=== PATIENT | male | born 1950 | race Caucasian/White ===

== ENCOUNTER 2019-03-02 08:11 | Inpatient (IN) ==
[~2019-03-02 08:11] MED LIST: ceFAZolin 1,000 MG in SYRINGE 1 EACH IV ONE
[2019-03-02] MEDS: LACTATED RINGERS 1,000 ML IV SCH (09:30)
[2019-03-02 09:38] LABS: Basophils # 0.1 10*3/uL (0.0-0.2); Basophils % 0.9 % (0.0-0.8); Eosinophils # 0.5 10*3/uL (0.0-0.87); Eosinophils % 5.9 % (0.00-10.9); Hematocrit 39.3 VOL% (42.0-52.0); Hemoglobin 12.1 GM/DL (14.0-18.0); Immature Granulocytes Absolute 0.08 #; Lymphocytes # 1.3 10*3/uL (1.4-4.0); Lymphocytes % 16.5 % (21.2-54.2); Mean Corpuscular HGB Conc 30.8 GM/DL (32-36); Mean Corpuscular Hemoglobin 26 PG (27-34); Mean Corpuscular Volume 84.5 FL (87-102); Mean Platelet Volume 8.9 FL (9.6-12.0); Monocytes # 0.8 10*3/uL (0.11-0.8); Monocytes % 10.5 % (1.7-12.7); Neutrophils # 5.1 10*3/uL (1.4-7.4); Neutrophils % 65.2 % (38.7-73.9); Platelet Count 233 T/CUMM (130-400); Red Blood Count 4.65 MC/CUMM (3.8-5.5); Red Cell Distribution Width 15.7 % (9.3-17.3); White Blood Count 7.8 T/CUMM (4-12)
[2019-03-02] MEDS ORDERED: DIAZEPAM 5 MG TABLET PO ONE (10:05)
[2019-03-02] MEDS ORDERED: FAMOTIDINE 20 MG TABLET PO ONE (10:05)
[2019-03-02 10:06] LABS: Calcium 9.3 MG/DL (8.5-10.1); Osmolality,Calculated 290.4 MOS/KG (273-304)
[2019-03-02] MEDS ORDERED: CARVEDILOL 3.125 MG TABLET PO ONE (10:06)
[2019-03-02 10:09] LABS: Potassium 6.1 MMOL/L (3.5-5.1)
[2019-03-02] MEDS ORDERED: CARVEDILOL 3.125 MG TABLET ONE (10:26)
[2019-03-02] MEDS ORDERED: ceFAZolin 1,000 MG VIAL ONE (10:26)
[2019-03-02] MEDS ORDERED: FAMOTIDINE 20 MG TABLET ONE (10:26)
[2019-03-02] MEDS ORDERED: DIAZEPAM 5 MG TABLET ONE (10:26)
[2019-03-02] MEDS ORDERED: ALBUTEROL/IPRATROPIUM 3 ML NEB RESP TX PRN (11:02)
[2019-03-02] MEDS ORDERED: DEXTROSE 50% 25 GM/50 ML VIAL IV PRN (11:02)
[2019-03-02] MEDS ORDERED: ONDANSETRON 4 MG/2 ML VIAL IV PRN (11:02)
[2019-03-02] MEDS ORDERED: GLUCAGON 1 MG VIAL IM PRN (11:02)
[2019-03-02] MEDS ORDERED: BISACODYL 5 MG TABLET PO PRN (11:02)
[2019-03-02] MEDS ORDERED: ACETAMINOPHEN 325 MG TABLET PO PRN (11:02)
[2019-03-02] MEDS ORDERED: ceFAZolin 1,000 MG in SYRINGE 1 EACH IV ONE (11:05)
[2019-03-02] MEDS ORDERED: NITROGLYCERIN SL 0.4 MG TABLET SL PRN (11:06)
[2019-03-02] MEDS: INSULIN LISPRO 100 UNIT/ML SUBCUT SCH ×2 (12:00→17:45)
[2019-03-02] MEDS ORDERED: SODIUM POLYSTYRENE SULFATE 15 GM/60 ML BOTTLE PO ONE (14:00)
[2019-03-02] MEDS: CLINDAMYCIN 300 MG CAPSULE PO SCH ×3 (15:15→23:24)
[2019-03-02] MEDS: SODIUM BICARB INJ 50 MEQ in SODIUM CHLORIDE 0.45% 1,000 ML IV SCH (15:18)
[2019-03-02] MEDS ORDERED: SODIUM POLYSTYRENE SULFATE 15 GM/60 ML BOTTLE PO PRN (19:30)
[2019-03-02] MEDS: CARVEDILOL 3.125 MG TABLET PO SCH (21:29)
[2019-03-02] MEDS: SIMVASTATIN 10 MG TABLET PO SCH (21:29)
[2019-03-02] MEDS: LORATADINE 10 MG TABLET PO SCH (21:29)
[2019-03-03] MEDS: SODIUM BICARB INJ 50 MEQ in SODIUM CHLORIDE 0.45% 1,000 ML IV SCH ×2 (04:14→21:40)
[2019-03-03 04:28] LABS: Basophils # 0.1 10*3/uL (0.0-0.2); Eosinophils # 0.4 10*3/uL (0.0-0.87); Eosinophils % 6.2 % (0.00-10.9); Hematocrit 36.2 VOL% (42.0-52.0); Immature Granulocytes % 0.9 %; Immature Granulocytes Absolute 0.06 #; Lymphocytes # 1.3 10*3/uL (1.4-4.0); Lymphocytes % 19.2 % (21.2-54.2); Mean Corpuscular HGB Conc 30.4 GM/DL (32-36); Mean Corpuscular Hemoglobin 26 PG (27-34); Mean Corpuscular Volume 84.2 FL (87-102); Mean Platelet Volume 8.7 FL (9.6-12.0); Monocytes % 13.8 % (1.7-12.7); Neutrophils # 4.1 10*3/uL (1.4-7.4); Neutrophils % 58.9 % (38.7-73.9); Platelet Count 207 T/CUMM (130-400); Red Cell Distribution Width 15.5 % (9.3-17.3)
[2019-03-03 05:05] LABS: Calcium 8.5 MG/DL (8.5-10.1); Osmolality,Calculated 283.7 MOS/KG (273-304); Potassium 5.2 MMOL/L (3.5-5.1)
[2019-03-03] MEDS ORDERED: DIAZEPAM 5 MG TABLET PO ONE (06:00)
[2019-03-03] MEDS ORDERED: FAMOTIDINE 20 MG TABLET PO ONE (06:00)
[2019-03-03] MEDS ORDERED: ceFAZolin 1,000 MG in SYRINGE 1 EACH IV ONE (06:00)
[2019-03-03] MEDS ORDERED: CARVEDILOL 3.125 MG TABLET PO ONE (06:00)
[2019-03-03] MEDS: CLINDAMYCIN 300 MG CAPSULE PO SCH ×3 (08:33→17:29)
[2019-03-03] MEDS ORDERED: LIDOCAINE 1%/EPI INJ 20 ML VIAL ONE (10:09)
[2019-03-03] MEDS: INSULIN LISPRO 100 UNIT/ML SUBCUT SCH ×3 (10:51→17:26)
[2019-03-03] MEDS: LACTATED RINGERS 1,000 ML IV SCH (10:52)
[2019-03-03] MEDS ORDERED: PROPOFOL 200 MG/20 ML VIAL IV ONE (10:52)
[2019-03-03] MEDS ORDERED: SEVOFLURANE 1 UNIT/15 MINUTE INH ONE (10:53)
[2019-03-03] MEDS ORDERED: MIDAZOLAM 2 MG/2 ML VIAL ONE (10:53)
[2019-03-03] MEDS ORDERED: ONDANSETRON 4 MG/2 ML VIAL ONE (10:54)
[2019-03-03] MEDS ORDERED: fentaNYL 100 MCG/2 ML VIAL ONE (10:54)
[2019-03-03] MEDS ORDERED: PHENYLEPHRINE 1 MG/10 ML SYRINGE IV ONE (10:54)
[2019-03-03] MEDS ORDERED: SODIUM CHLORIDE 0.9% 250 ML IV ONE (10:55)
[2019-03-03] MEDS: CARVEDILOL 3.125 MG TABLET PO SCH ×2 (11:28→21:14)
[2019-03-03] MEDS: LORATADINE 10 MG TABLET PO SCH ×2 (11:29→21:14)
[2019-03-03] MEDS: sitaGLIPtin 100 MG TABLET PO SCH (11:29)
[2019-03-03] MEDS: ALLOPURINOL 300 MG TABLET PO SCH (11:30)
[2019-03-03] MEDS: PANTOPRAZOLE 40 MG TABLET PO SCH (11:30)
[2019-03-03] MEDS: MAGNESIUM GLUCONATE 500 MG TABLET PO SCH (11:30)
[2019-03-03] MEDS: ASPIRIN CHEW 81 MG TABLET PO SCH (11:30)
[2019-03-03] MEDS: NON-FORMULARY MEDICATION (Canagliflozin [Invokana] 300 MG) PO SCH (11:46)
[2019-03-03] MEDS ORDERED: HYDROmorphone 2 MG/1 ML VIAL IV PRN ×2 (11:48)
[2019-03-03] MEDS ORDERED: NALOXONE 0.4 MG/ML VIAL ONE (15:59)
[2019-03-03] MEDS: SIMVASTATIN 10 MG TABLET PO SCH (21:14)
[2019-03-04] MEDS: CLINDAMYCIN 300 MG CAPSULE PO SCH ×3 (01:38→12:02)
[2019-03-04] MEDS: INSULIN LISPRO 100 UNIT/ML SUBCUT SCH ×3 (09:09→17:20)
[2019-03-04] MEDS: MAGNESIUM GLUCONATE 500 MG TABLET PO SCH (09:26)
[2019-03-04] MEDS: sitaGLIPtin 100 MG TABLET PO SCH (09:26)
[2019-03-04] MEDS: LORATADINE 10 MG TABLET PO SCH ×2 (09:26→21:04)
[2019-03-04] MEDS: PANTOPRAZOLE 40 MG TABLET PO SCH (09:26)
[2019-03-04] MEDS: CARVEDILOL 3.125 MG TABLET PO SCH ×2 (09:26→21:04)
[2019-03-04] MEDS: ALLOPURINOL 300 MG TABLET PO SCH (09:26)
[2019-03-04] MEDS: ASPIRIN CHEW 81 MG TABLET PO SCH (09:26)
[2019-03-04] MEDS: LACTATED RINGERS 1,000 ML IV SCH (09:27)
[2019-03-04] MEDS: NON-FORMULARY MEDICATION (Canagliflozin [Invokana] 300 MG) PO SCH (09:27)
[2019-03-04] MEDS: SODIUM BICARB INJ 50 MEQ in SODIUM CHLORIDE 0.45% 1,000 ML IV SCH ×2 (12:03→19:25)
[2019-03-04] MEDS: SODIUM HYPOCHLORITE 0.25% IRRIG 473 ML BOTTLE TOP SCH (15:10)
[2019-03-04] MEDS: MORPHINE 4 MG/1 ML VIAL IV PRN (15:13)
[2019-03-04] MEDS: PIPERACILLIN/TAZOBACTAM 3,375 MG in SODIUM CHLORIDE 0.9% 100 ML IV SCH (17:17)
[2019-03-04] MEDS: CHLORHEXIDINE 4% SOLN 118 ML BOTTLE TOP SCH (17:21)
[2019-03-04] MEDS: SIMVASTATIN 10 MG TABLET PO SCH (21:04)
[2019-03-05] MEDS: PIPERACILLIN/TAZOBACTAM 3,375 MG in SODIUM CHLORIDE 0.9% 100 ML IV SCH ×2 (00:55→08:07)
[2019-03-05 05:09] LABS: Calcium 8.3 MG/DL (8.5-10.1); Osmolality,Calculated 279.8 MOS/KG (273-304); Potassium 4.4 MMOL/L (3.5-5.1)
[2019-03-05 06:57] LABS: Basophils # 0.1 10*3/uL (0.0-0.2); Eosinophils # 0.5 10*3/uL (0.0-0.87); Eosinophils % 7.5 % (0.00-10.9); Hematocrit 35.2 VOL% (42.0-52.0); Hemoglobin 10.8 GM/DL (14.0-18.0); Immature Granulocytes % 1.3 %; Immature Granulocytes Absolute 0.08 #; Lymphocytes # 1.1 10*3/uL (1.4-4.0); Lymphocytes % 18.6 % (21.2-54.2); Mean Corpuscular HGB Conc 30.7 GM/DL (32-36); Mean Corpuscular Hemoglobin 26 PG (27-34); Mean Corpuscular Volume 83.2 FL (87-102); Mean Platelet Volume 8.8 FL (9.6-12.0); Monocytes # 0.8 10*3/uL (0.11-0.8); Monocytes % 14.1 % (1.7-12.7); Neutrophils # 3.4 10*3/uL (1.4-7.4); Neutrophils % 57.5 % (38.7-73.9); Platelet Count 195 T/CUMM (130-400); Red Blood Count 4.23 MC/CUMM (3.8-5.5); Red Cell Distribution Width 15.2 % (9.3-17.3)
[2019-03-05] MEDS: INSULIN LISPRO 100 UNIT/ML SUBCUT SCH ×3 (08:07→17:40)
[2019-03-05] MEDS: sitaGLIPtin 100 MG TABLET PO SCH (08:08)
[2019-03-05] MEDS: ASPIRIN CHEW 81 MG TABLET PO SCH (08:08)
[2019-03-05] MEDS: LORATADINE 10 MG TABLET PO SCH ×2 (08:08→20:18)
[2019-03-05] MEDS: CARVEDILOL 3.125 MG TABLET PO SCH ×2 (08:09→20:18)
[2019-03-05] MEDS: MAGNESIUM GLUCONATE 500 MG TABLET PO SCH (08:09)
[2019-03-05] MEDS: PANTOPRAZOLE 40 MG TABLET PO SCH (08:09)
[2019-03-05] MEDS: ALLOPURINOL 300 MG TABLET PO SCH (08:09)
[2019-03-05] MEDS: SODIUM HYPOCHLORITE 0.25% IRRIG 473 ML BOTTLE TOP SCH (08:10)
[2019-03-05] MEDS: NON-FORMULARY MEDICATION (Canagliflozin [Invokana] 300 MG) PO SCH (08:10)
[2019-03-05] MEDS: CHLORHEXIDINE 4% SOLN 118 ML BOTTLE TOP SCH (10:21)
[2019-03-05] MEDS: LACTATED RINGERS 1,000 ML IV SCH (10:21)
[2019-03-05] MEDS: VANCOMYCIN INJ 1,000 MG in SODIUM CHLORIDE 0.9% 250 ML IV SCH (13:55)
[2019-03-05] MEDS: SODIUM BICARB INJ 50 MEQ in SODIUM CHLORIDE 0.45% 1,000 ML IV SCH (13:56)
[2019-03-05] MEDS: SIMVASTATIN 10 MG TABLET PO SCH (20:18)
[2019-03-06] MEDS: VANCOMYCIN INJ 1,000 MG in SODIUM CHLORIDE 0.9% 250 ML IV SCH ×2 (00:20→12:56)
[2019-03-06] MEDS: SODIUM BICARB INJ 50 MEQ in SODIUM CHLORIDE 0.45% 1,000 ML IV SCH (06:42)
[2019-03-06 08:38] LABS: Calcium 8.4 MG/DL (8.5-10.1); Osmolality,Calculated 278.1 MOS/KG (273-304); Potassium 4.2 MMOL/L (3.5-5.1)
[2019-03-06] MEDS: LORATADINE 10 MG TABLET PO SCH ×2 (08:41→21:14)
[2019-03-06] MEDS: CARVEDILOL 3.125 MG TABLET PO SCH ×2 (08:41→21:14)
[2019-03-06] MEDS: MAGNESIUM GLUCONATE 500 MG TABLET PO SCH (08:42)
[2019-03-06] MEDS: ASPIRIN CHEW 81 MG TABLET PO SCH (08:42)
[2019-03-06] MEDS: sitaGLIPtin 100 MG TABLET PO SCH (08:42)
[2019-03-06] MEDS: PANTOPRAZOLE 40 MG TABLET PO SCH (08:42)
[2019-03-06] MEDS: ALLOPURINOL 300 MG TABLET PO SCH (08:43)
[2019-03-06] MEDS: NON-FORMULARY MEDICATION (Canagliflozin [Invokana] 300 MG) PO SCH (08:45)
[2019-03-06] MEDS: INSULIN LISPRO 100 UNIT/ML SUBCUT SCH ×3 (09:00→16:05)
[2019-03-06] MEDS: SODIUM HYPOCHLORITE 0.25% IRRIG 473 ML BOTTLE TOP SCH (10:47)
[2019-03-06] MEDS: CHLORHEXIDINE 4% SOLN 118 ML BOTTLE TOP SCH (10:47)
[2019-03-06] MEDS: SIMVASTATIN 10 MG TABLET PO SCH (21:15)
[2019-03-07] MEDS: SODIUM BICARB INJ 50 MEQ in SODIUM CHLORIDE 0.45% 1,000 ML IV SCH ×2 (00:22→20:18)
[2019-03-07] MEDS: VANCOMYCIN INJ 1,000 MG in SODIUM CHLORIDE 0.9% 250 ML IV SCH ×2 (02:16→13:47)
[2019-03-07] MEDS ORDERED: BUPIVACAINE 0.5% 50 ML VIAL ONE (06:07)
[2019-03-07] MEDS ORDERED: LIDOCAINE 1% 20 ML VIAL ONE (06:07)
[2019-03-07] MEDS: INSULIN LISPRO 100 UNIT/ML SUBCUT SCH ×3 (07:15→17:04)
[2019-03-07] MEDS ORDERED: fentaNYL 100 MCG/2 ML VIAL ONE (08:18)
[2019-03-07] MEDS ORDERED: DEXAMETHASONE 4 MG/1 ML VIAL ONE (08:18)
[2019-03-07] MEDS ORDERED: ONDANSETRON 4 MG/2 ML VIAL ONE ×2 (08:18→08:29)
[2019-03-07] MEDS ORDERED: KETOROLAC 30 MG/1 ML VIAL ONE (08:18)
[2019-03-07] MEDS ORDERED: PROPOFOL 200 MG/20 ML VIAL IV ONE (08:18)
[2019-03-07] MEDS ORDERED: PHENYLEPHRINE 1 MG/10 ML SYRINGE IV ONE (08:18)
[2019-03-07] MEDS ORDERED: SEVOFLURANE 1 UNIT/15 MINUTE INH ONE (08:19)
[2019-03-07] MEDS ORDERED: MEPERIDINE 25 MG/1 ML VIAL ONE (08:29)
[2019-03-07] MEDS ORDERED: ONDANSETRON 4 MG/2 ML VIAL IV PRN (08:30)
[2019-03-07] MEDS ORDERED: MEPERIDINE 25 MG/1 ML VIAL IV PRN (08:30)
[2019-03-07] MEDS ORDERED: PROMETHAZINE INJ 25 MG in SODIUM CHLORIDE 0.9% 50 ML IV PRN (08:30)
[2019-03-07] MEDS ORDERED: HYDROmorphone 2 MG/1 ML VIAL IV PRN (08:30)
[2019-03-07] MEDS: NON-FORMULARY MEDICATION (Canagliflozin [Invokana] 300 MG) PO SCH (09:49)
[2019-03-07] MEDS: LACTATED RINGERS 1,000 ML IV SCH (09:49)
[2019-03-07] MEDS: PANTOPRAZOLE 40 MG TABLET PO SCH (09:53)
[2019-03-07] MEDS: ALLOPURINOL 300 MG TABLET PO SCH (09:53)
[2019-03-07] MEDS: MAGNESIUM GLUCONATE 500 MG TABLET PO SCH (09:53)
[2019-03-07] MEDS: SODIUM HYPOCHLORITE 0.25% IRRIG 473 ML BOTTLE TOP SCH (09:54)
[2019-03-07] MEDS: ASPIRIN CHEW 81 MG TABLET PO SCH (09:54)
[2019-03-07] MEDS: CARVEDILOL 3.125 MG TABLET PO SCH ×2 (09:54→20:19)
[2019-03-07] MEDS: CHLORHEXIDINE 4% SOLN 118 ML BOTTLE TOP SCH (09:54)
[2019-03-07] MEDS: LORATADINE 10 MG TABLET PO SCH ×2 (09:54→20:19)
[2019-03-07] MEDS: sitaGLIPtin 100 MG TABLET PO SCH (09:54)
[2019-03-07] MEDS ORDERED: VANCOMYCIN INJ 1,000 MG in SODIUM CHLORIDE 0.9% 250 ML IV SCH (20:00)
[2019-03-07] MEDS: SIMVASTATIN 10 MG TABLET PO SCH (20:19)
[2019-03-08] MEDS: INSULIN LISPRO 100 UNIT/ML SUBCUT SCH ×3 (09:43→17:29)
[2019-03-08] MEDS: ASPIRIN CHEW 81 MG TABLET PO SCH (09:44)
[2019-03-08] MEDS: CARVEDILOL 3.125 MG TABLET PO SCH ×2 (09:44→21:39)
[2019-03-08] MEDS: MAGNESIUM GLUCONATE 500 MG TABLET PO SCH (09:44)
[2019-03-08] MEDS: sitaGLIPtin 100 MG TABLET PO SCH (09:44)
[2019-03-08] MEDS: ALLOPURINOL 300 MG TABLET PO SCH (09:45)
[2019-03-08] MEDS: PANTOPRAZOLE 40 MG TABLET PO SCH (09:45)
[2019-03-08] MEDS: NON-FORMULARY MEDICATION (Canagliflozin [Invokana] 300 MG) PO SCH (09:45)
[2019-03-08] MEDS: LORATADINE 10 MG TABLET PO SCH ×2 (09:45→21:39)
[2019-03-08] MEDS ORDERED: TUBERCULIN SKIN TEST 0.1 ML SYRINGE INTRADERM ONE (10:00)
[2019-03-08] MEDS: CHLORHEXIDINE 4% SOLN 118 ML BOTTLE TOP SCH (10:00)
[2019-03-08] MEDS: SODIUM HYPOCHLORITE 0.25% IRRIG 473 ML BOTTLE TOP SCH (10:00)
[2019-03-08] MEDS: LEVOFLOXACIN 500 MG TABLET PO SCH (12:39)
[2019-03-08] MEDS: SODIUM BICARB INJ 50 MEQ in SODIUM CHLORIDE 0.45% 1,000 ML IV SCH (16:32)
[2019-03-08] MEDS: SIMVASTATIN 10 MG TABLET PO SCH (21:39)
[2019-03-09] MEDS: INSULIN LISPRO 100 UNIT/ML SUBCUT SCH ×3 (08:01→18:00)
[2019-03-09] MEDS: CARVEDILOL 3.125 MG TABLET PO SCH ×2 (08:02→20:14)
[2019-03-09] MEDS: MAGNESIUM GLUCONATE 500 MG TABLET PO SCH (08:02)
[2019-03-09] MEDS: LORATADINE 10 MG TABLET PO SCH ×2 (08:02→20:14)
[2019-03-09] MEDS: ALLOPURINOL 300 MG TABLET PO SCH (08:02)
[2019-03-09] MEDS: LEVOFLOXACIN 500 MG TABLET PO SCH (08:03)
[2019-03-09] MEDS: ASPIRIN CHEW 81 MG TABLET PO SCH (08:03)
[2019-03-09] MEDS: PANTOPRAZOLE 40 MG TABLET PO SCH (08:03)
[2019-03-09] MEDS: sitaGLIPtin 100 MG TABLET PO SCH (08:03)
[2019-03-09] MEDS: CHLORHEXIDINE 4% SOLN 118 ML BOTTLE TOP SCH (08:04)
[2019-03-09] MEDS: SODIUM HYPOCHLORITE 0.25% IRRIG 473 ML BOTTLE TOP SCH (08:04)
[2019-03-09] MEDS: NON-FORMULARY MEDICATION (Canagliflozin [Invokana] 300 MG) PO SCH (08:04)
[2019-03-09] MEDS: SODIUM BICARB INJ 50 MEQ in SODIUM CHLORIDE 0.45% 1,000 ML IV SCH (18:36)
[2019-03-09] MEDS: SIMVASTATIN 10 MG TABLET PO SCH (20:14)
[2019-03-10] MEDS: SODIUM BICARB INJ 50 MEQ in SODIUM CHLORIDE 0.45% 1,000 ML IV SCH (00:47)
[2019-03-10] MEDS: LEVOFLOXACIN 500 MG TABLET PO SCH (08:47)
[2019-03-10] MEDS: LORATADINE 10 MG TABLET PO SCH (08:48)
[2019-03-10] MEDS: ASPIRIN CHEW 81 MG TABLET PO SCH (08:48)
[2019-03-10] MEDS: sitaGLIPtin 100 MG TABLET PO SCH (08:48)
[2019-03-10] MEDS: PANTOPRAZOLE 40 MG TABLET PO SCH (08:48)
[2019-03-10] MEDS: MAGNESIUM GLUCONATE 500 MG TABLET PO SCH (08:48)
[2019-03-10] MEDS: ALLOPURINOL 300 MG TABLET PO SCH (08:48)
[2019-03-10] MEDS: CARVEDILOL 3.125 MG TABLET PO SCH (08:48)
[2019-03-10] MEDS: INSULIN LISPRO 100 UNIT/ML SUBCUT SCH ×2 (08:49→13:08)
[2019-03-10] MEDS: CHLORHEXIDINE 4% SOLN 118 ML BOTTLE TOP SCH (09:30)
[2019-03-10] MEDS: SODIUM HYPOCHLORITE 0.25% IRRIG 473 ML BOTTLE TOP SCH (09:30)
[2019-03-10] MEDS: NON-FORMULARY MEDICATION (Canagliflozin [Invokana] 300 MG) PO SCH (09:50)
[2019-03-10] MEDS: MORPHINE 4 MG/1 ML VIAL IV PRN (10:29)
[2019-03-10 11:27] VITALS: BP 120/72
== END 2019-03-10 15:05 | disposition home health service (06) | DRG 492 ==
LOC: N.OR 08:11 → N.SDSINP 08:35 → N.3E 11:02
PROVIDERS: ADMIT Surgery; ATTEND Surgery

== ENCOUNTER 2019-03-30 11:03 | Inpatient (IN) ==
[~2019-03-30 11:03] MED LIST changes: +ceFAZolin 1,000 MG VIAL ONE
[2019-03-30 12:16] LABS: Calcium 9.1 MG/DL (8.5-10.1)
[2019-03-30] MEDS ORDERED: LIDOCAINE 1%/EPI INJ 20 ML VIAL ONE (13:08)
[2019-03-30] MEDS ORDERED: MIDAZOLAM 2 MG/2 ML VIAL ONE (14:22)
[2019-03-30] MEDS ORDERED: PROPOFOL 200 MG/20 ML VIAL IV ONE (14:22)
[2019-03-30] MEDS ORDERED: PHENYLEPHRINE 1 MG/10 ML SYRINGE IV ONE (14:23)
[2019-03-30] MEDS ORDERED: fentaNYL 100 MCG/2 ML VIAL ONE (14:23)
[2019-03-30] MEDS ORDERED: ONDANSETRON 4 MG/2 ML VIAL ONE (14:23)
[2019-03-30] MEDS ORDERED: ACETAMINOPHEN 1,000 MG/100 ML VIAL IV ONE (14:23)
[2019-03-30] MEDS ORDERED: DEXAMETHASONE 4 MG/1 ML VIAL ONE (14:23)
[2019-03-30] MEDS ORDERED: HYDROmorphone 2 MG/1 ML VIAL IV PRN ×2 (15:08→16:19)
[2019-03-30] MEDS ORDERED: ONDANSETRON 4 MG/2 ML VIAL IV PRN ×2 (15:08→16:19)
[2019-03-30] MEDS ORDERED: DEXTROSE 50% 25 GM/50 ML SYRINGE IV PRN (16:19)
[2019-03-30] MEDS ORDERED: GLUCAGON 1 MG VIAL IM PRN (16:19)
[2019-03-30] MEDS ORDERED: PROMETHAZINE 25 MG/1 ML VIAL IM PRN (16:19)
[2019-03-30] MEDS: LACTATED RINGERS 1,000 ML IV SCH ×2 (16:19→18:16)
[2019-03-30] MEDS ORDERED: NITROGLYCERIN SL 0.4 MG TABLET SL PRN (16:19)
[2019-03-30 17:17] LABS: Calcium 8.4 MG/DL (8.5-10.1); Osmolality,Calculated 276.4 MOS/KG (273-304)
[2019-03-30 18:06] LABS: Basophils # 0.1 10*3/uL (0.0-0.2); Basophils % 0.5 % (0.0-0.8); Eosinophils # 0.3 10*3/uL (0.0-0.87); Eosinophils % 3.2 % (0.00-10.9); Hematocrit 37.4 VOL% (42.0-52.0); Hemoglobin 11.6 GM/DL (14.0-18.0); Immature Granulocytes % 0.5 %; Immature Granulocytes Absolute 0.05 #; Lymphocytes # 0.9 10*3/uL (1.4-4.0); Lymphocytes % 9.6 % (21.2-54.2); Mean Corpuscular Volume 82.7 FL (87-102); Mean Platelet Volume 9.4 FL (9.6-12.0); Monocytes % 2.3 % (1.7-12.7); Neutrophils % 83.9 % (38.7-73.9); Platelet Count 155 T/CUMM (130-400); Red Blood Count 4.52 MC/CUMM (3.8-5.5); Red Cell Distribution Width 15.2 % (9.3-17.3); White Blood Count 9.2 T/CUMM (4-12)
[2019-03-30] MEDS: GABAPENTIN 100 MG CAPSULE PO SCH ×2 (18:10→21:18)
[2019-03-30] MEDS: INSULIN REGULAR 100 UNIT/ML SUBCUT SCH ×2 (18:11→21:55)
[2019-03-30] MEDS ORDERED: SODIUM POLYSTYRENE SULFATE 15 GM/60 ML BOTTLE PO ONE (18:41)
[2019-03-30] MEDS ORDERED: CALCIUM GLUCONATE 2,000 MG in SODIUM CHLORIDE 0.9% 100 ML IV ONE (18:41)
[2019-03-30] MEDS ORDERED: INSULIN REGULAR 100 UNIT/ML IV ONE (18:41)
[2019-03-30] MEDS ORDERED: DEXTROSE 50% 25 GM/50 ML SYRINGE IV ONE (18:41)
[2019-03-30] MEDS: SIMVASTATIN 10 MG TABLET PO SCH (21:17)
[2019-03-30] MEDS: CARVEDILOL 3.125 MG TABLET PO SCH (21:17)
[2019-03-30] MEDS: FAMOTIDINE 20 MG TABLET PO SCH (21:17)
[2019-03-30] MEDS: MAGNESIUM GLUCONATE 500 MG TABLET PO SCH (21:17)
[2019-03-30] MEDS: LORATADINE 10 MG TABLET PO SCH (21:18)
[2019-03-30] MEDS: ASPIRIN CHEW 81 MG TABLET PO SCH (21:18)
[2019-03-30] MEDS: SODIUM BICARB INJ 50 MEQ in DEXTROSE 5% 1,000 ML IV SCH (21:18)
[2019-03-30] MEDS ORDERED: SODIUM POLYSTYRENE SULFATE 15 GM/60 ML BOTTLE PO STA (22:07)
[2019-03-30] MEDS ORDERED: INSULIN REGULAR 100 UNIT/ML SUBCUT ONE (22:08)
[2019-03-31 02:33] LABS: Calcium 8.5 MG/DL (8.5-10.1); Osmolality,Calculated 283.5 MOS/KG (273-304)
[2019-03-31 05:02] LABS: Basophils % 0.2 % (0.0-0.8); Hematocrit 38.8 VOL% (42.0-52.0); Hemoglobin 12.1 GM/DL (14.0-18.0); Immature Granulocytes % 0.5 %; Immature Granulocytes Absolute 0.05 #; Lymphocytes % 10.8 % (21.2-54.2); Mean Corpuscular HGB Conc 31.2 GM/DL (32-36); Mean Corpuscular Volume 81.5 FL (87-102); Mean Platelet Volume 9.4 FL (9.6-12.0); Monocytes % 7.5 % (1.7-12.7); Platelet Count 170 T/CUMM (130-400); Red Blood Count 4.76 MC/CUMM (3.8-5.5); Red Cell Distribution Width 14.9 % (9.3-17.3); White Blood Count 9.3 T/CUMM (4-12)
[2019-03-31 05:29] LABS: Calcium 9.2 MG/DL (8.5-10.1); Osmolality,Calculated 283.2 MOS/KG (273-304)
[2019-03-31] MEDS: SODIUM BICARB INJ 50 MEQ in DEXTROSE 5% 1,000 ML IV SCH (06:37)
[2019-03-31 07:36] LABS: Apearance,Urine CLEAR (Clear); Bilirubin,Urine Negative (Negative); Blood, Urine Negative (Negative); Glucose,Urine (UA) >=500 mg/dL (Negative); Ketones,Urine Negative (Negative); Nitrite,Urine Negative (Negative); Protein,Urine Negative; Squamous Epithelial Cell,Urine Occasional /HPF (0-10); Urine Color Straw (Yellow); Urine Urobilinogen < 2.0 EU/DL (0.2-1.0)
[2019-03-31] MEDS: ENOXAPARIN 40 MG/0.4 ML SYRINGE SUBCUT SCH (08:58)
[2019-03-31] MEDS: INSULIN REGULAR 100 UNIT/ML SUBCUT SCH ×4 (08:58→22:02)
[2019-03-31] MEDS: LORATADINE 10 MG TABLET PO SCH ×2 (08:58→21:59)
[2019-03-31] MEDS: GABAPENTIN 100 MG CAPSULE PO SCH ×3 (08:59→21:58)
[2019-03-31] MEDS: FAMOTIDINE 20 MG TABLET PO SCH ×2 (08:59→21:59)
[2019-03-31] MEDS: CARVEDILOL 3.125 MG TABLET PO SCH ×2 (08:59→21:59)
[2019-03-31] MEDS ORDERED: ALLOPURINOL 300 MG TABLET PO SCH (09:00)
[2019-03-31 09:38] LABS: Calcium 8.9 MG/DL (8.5-10.1); Osmolality,Calculated 283.2 MOS/KG (273-304)
[2019-03-31] MEDS ORDERED: SODIUM CHLORIDE 0.9% 500 ML IV ONE ×2 (10:44→10:50)
[2019-03-31] MEDS ORDERED: SODIUM CHLORIDE 0.9% 1,000 ML IV SCH (11:00)
[2019-03-31] MEDS: ALLOPURINOL 100 MG TABLET PO SCH (12:00)
[2019-03-31 12:19] LABS: Calcium 8.6 MG/DL (8.5-10.1); Osmolality,Calculated 282.2 MOS/KG (273-304)
[2019-03-31] MEDS: SODIUM POLYSTYRENE SULFATE 15 GM/60 ML BOTTLE PO SCH ×2 (13:00→22:00)
[2019-03-31] MEDS: SODIUM BICARB INJ 50 MEQ in DEXTROSE 5% NACL 0.45% 1,000 ML IV SCH (18:13)
[2019-03-31] MEDS: ASPIRIN CHEW 81 MG TABLET PO SCH (21:59)
[2019-03-31] MEDS: SIMVASTATIN 10 MG TABLET PO SCH (21:59)
[2019-03-31] MEDS: MAGNESIUM GLUCONATE 500 MG TABLET PO SCH (22:00)
[2019-04-01] MEDS: SODIUM BICARB INJ 50 MEQ in DEXTROSE 5% NACL 0.45% 1,000 ML IV SCH (03:44)
[2019-04-01] MEDS: SODIUM POLYSTYRENE SULFATE 15 GM/60 ML BOTTLE PO SCH ×2 (04:06→12:38)
[2019-04-01] MEDS: INSULIN REGULAR 100 UNIT/ML SUBCUT SCH ×2 (07:35→11:31)
[2019-04-01] MEDS: ALLOPURINOL 100 MG TABLET PO SCH (08:00)
[2019-04-01] MEDS: ENOXAPARIN 40 MG/0.4 ML SYRINGE SUBCUT SCH (08:00)
[2019-04-01] MEDS: GABAPENTIN 100 MG CAPSULE PO SCH (08:00)
[2019-04-01] MEDS: LORATADINE 10 MG TABLET PO SCH (08:00)
[2019-04-01] MEDS: FAMOTIDINE 20 MG TABLET PO SCH (08:00)
[2019-04-01] MEDS: CARVEDILOL 3.125 MG TABLET PO SCH (08:00)
[2019-04-01] MEDS ORDERED: INSULIN GLARGINE 100 UNIT/ML SUBCUT SCH (09:00)
[2019-04-01 11:57] VITALS: BP 147/64
== END 2019-04-01 17:30 | disposition home or self-care (01) | DRG 476 ==
LOC: N.OR 11:03 → N.3E 16:08
PROVIDERS: ADMIT Surgery; ATTEND Surgery

== ENCOUNTER 2021-12-03 10:41 | Inpatient (IN) ==
[~2021-12-03 10:41] MED LIST changes: +ASPIRIN 325 MG TABLET PO ONE; +DIAZEPAM 5 MG TABLET PO ONE; +MAGNESIUM SULF RIDER 2 GM/50 ML PREMIX IV PRN; +POTASSIUM CHLORIDE RIDER 10 MEQ/100 ML PREMIX IV PRN; -ceFAZolin 1,000 MG VIAL ONE; -ceFAZolin 1,000 MG in SYRINGE 1 EACH IV ONE; +diphenhydrAMINE CAP 50 MG CAPSULE PO ONE
[2021-12-03] MEDS ORDERED: diphenhydrAMINE CAP 50 MG CAPSULE ONE (11:43)
[2021-12-03] MEDS ORDERED: DIAZEPAM 5 MG TABLET ONE (11:43)
[2021-12-03] MEDS ORDERED: ASPIRIN 325 MG TABLET ONE (11:43)
[2021-12-03] MEDS: SODIUM CHLORIDE 0.9% 1,000 ML IV SCH (11:45)
[2021-12-03] MEDS ORDERED: LIDOCAINE 1% 20 ML VIAL ONE (13:02)
[2021-12-03] MEDS ORDERED: fentaNYL 100 MCG/2 ML VIAL ONE (13:03)
[2021-12-03] MEDS ORDERED: MIDAZOLAM 2 MG/2 ML VIAL ONE (13:03)
[2021-12-03] MEDS ORDERED: ENOXAPARIN 30 MG/0.3 ML SYRINGE ONE (13:54)
[2021-12-03] MEDS ORDERED: EPTIFIBATIDE 20,000 MCG/10 ML VIAL ONE (13:57)
[2021-12-03] MEDS ORDERED: EPTIFIBATIDE 75 MG/100 ML BOTTLE IV ONE (13:57)
[2021-12-03] MEDS ORDERED: EPTIFIBATIDE 75 MG/100 ML BOTTLE IV SCH (14:05)
[2021-12-03] MEDS ORDERED: ENOXAPARIN 60 MG/0.6 ML SYRINGE ONE (14:09)
[2021-12-03] MEDS ORDERED: TICAGRELOR 90 MG TABLET ONE (14:20)
[2021-12-03] MEDS ORDERED: DEXTROSE 50% 25 GM/50 ML VIAL IV PRN (14:34)
[2021-12-03] MEDS ORDERED: ZALEPLON 5 MG CAPSULE PO PRN (14:34)
[2021-12-03] MEDS ORDERED: NITROGLYCERIN SL 0.4 MG TABLET SL PRN (14:34)
[2021-12-03] MEDS ORDERED: GLUCAGON 1 MG VIAL IM PRN (14:34)
[2021-12-03] MEDS ORDERED: HYDROmorphone 2 MG/1 ML VIAL IV PRN (14:34)
[2021-12-03] MEDS ORDERED: cloNIDine 0.1 MG TABLET PO PRN (17:40)
[2021-12-03] MEDS ORDERED: cloNIDine 0.1 MG TABLET ONE (17:47)
[2021-12-03] MEDS ORDERED: hydrALAZINE 20 MG/1 ML VIAL IV PRN (18:40)
[2021-12-03] MEDS ORDERED: LABETALOL 20 MG/4 ML SYRINGE IV PRN (18:42)
[2021-12-03] MEDS ORDERED: hydrALAZINE 20 MG/1 ML VIAL ONE (18:42)
[2021-12-03] MEDS: carvediloL 3.125 MG TABLET PO SCH ×2 (19:05→21:10)
[2021-12-03] MEDS ORDERED: carvediloL 3.125 MG TABLET PO SCH (21:00)
[2021-12-03] MEDS: FAMOTIDINE 20 MG TABLET PO SCH (21:12)
[2021-12-03] MEDS: ROSUVASTATIN 20 MG TABLET PO SCH (21:12)
[2021-12-03] MEDS: LORATADINE 10 MG TABLET PO SCH (21:13)
[2021-12-03] MEDS: TICAGRELOR 90 MG TABLET PO SCH (21:13)
[2021-12-03] MEDS: allopurinoL 100 MG TABLET PO SCH (21:13)
[2021-12-03] MEDS: INSULIN REGULAR 100 UNIT/ML SUBCUT SCH (22:30)
[2021-12-03] MEDS: INSULIN NPH/REGULAR 70/30 100 UNIT/ML SUBCUT SCH (22:30)
[2021-12-04 06:24] LABS: Basophils % 0.5 % (0.0-0.8); Eosinophils # 0.4 10*3/uL (0.0-0.87); Eosinophils % 5.6 % (0.00-10.9); Hemoglobin 9.3 GM/DL (14.0-18.0); Immature Granulocytes % 0.7 %; Immature Granulocytes Absolute 0.05 #; Lymphocytes # 0.7 10*3/uL (1.4-4.0); Lymphocytes % 9.7 % (21.2-54.2); Mean Corpuscular HGB Conc 32.1 GM/DL (32-36); Mean Corpuscular Volume 78.4 FL (87-102); Mean Platelet Volume 8.5 FL (9.6-12.0); Monocytes % 8.5 % (1.7-12.7); Platelet Count 232 T/CUMM (130-400); Red Cell Distribution Width 14.7 % (9.3-17.3); White Blood Count 7.5 T/CUMM (4-12)
[2021-12-04 06:45] LABS: Blood Urea Nitrogen 37 MG/DL (7-18); Calcium 7.8 MG/DL (8.5-10.1); Carbon Dioxide 22 MMOL/L (21-32); Estimated Glom Filtration Rate 36 ML/MIN; Glucose 168 MG/DL (74-106); HDL Cholesterol 23 MG/DL (40-60); Osmolality,Calculated 285.8 MOS/KG (273-304); Potassium 4.1 MMOL/L (3.5-5.1); Risk Ratio 3.74; Sodium 137 MMOL/L (136-145); Triglycerides 119 MG/DL (2-150); VLDL Cholesterol 23.8 MG/DL
[2021-12-04] MEDS: INSULIN REGULAR 100 UNIT/ML SUBCUT SCH ×5 (07:12→21:26)
[2021-12-04] MEDS: SODIUM CHLORIDE 0.9% 1,000 ML IV SCH ×3 (07:12→13:13)
[2021-12-04] MEDS: ACETAMINOPHEN 325 MG TABLET PO PRN (07:19)
[2021-12-04] MEDS ORDERED: FUROSEMIDE 40 MG TABLET PO SCH (09:00)
[2021-12-04] MEDS ORDERED: ASPIRIN 325 MG TABLET PO SCH (09:00)
[2021-12-04] MEDS: INSULIN NPH/REGULAR 70/30 100 UNIT/ML SUBCUT SCH ×2 (09:17→16:26)
[2021-12-04] MEDS: carvediloL 3.125 MG TABLET PO SCH (09:22)
[2021-12-04] MEDS: allopurinoL 100 MG TABLET PO SCH ×2 (09:22→20:25)
[2021-12-04] MEDS: LORATADINE 10 MG TABLET PO SCH ×2 (09:22→20:25)
[2021-12-04] MEDS: TICAGRELOR 90 MG TABLET PO SCH ×2 (09:22→20:25)
[2021-12-04] MEDS: FAMOTIDINE 20 MG TABLET PO SCH ×2 (09:22→20:25)
[2021-12-04] MEDS: MAGNESIUM OXIDE 400 MG TABLET PO SCH (09:23)
[2021-12-04] MEDS ORDERED: DEXTROSE 50% 25 GM/50 ML SYRINGE IV ONE (16:18)
[2021-12-04] MEDS: ROSUVASTATIN 20 MG TABLET PO SCH (20:25)
[2021-12-04] MEDS: ONDANSETRON 4 MG/2 ML VIAL IV PRN (21:50)
[2021-12-05 06:17] LABS: Basophils % 0.3 % (0.0-0.8); Eosinophils # 0.1 10*3/uL (0.0-0.87); Eosinophils % 0.9 % (0.00-10.9); Hematocrit 27.3 VOL% (42.0-52.0); Hemoglobin 8.6 GM/DL (14.0-18.0); Immature Granulocytes % 0.8 %; Immature Granulocytes Absolute 0.11 #; Lymphocytes # 0.5 10*3/uL (1.4-4.0); Lymphocytes % 3.8 % (21.2-54.2); Mean Corpuscular HGB Conc 31.5 GM/DL (32-36); Mean Corpuscular Volume 79.4 FL (87-102); Mean Platelet Volume 8.9 FL (9.6-12.0); Monocytes % 4.8 % (1.7-12.7); Neutrophils % 89.4 % (38.7-73.9); Platelet Count 240 T/CUMM (130-400); Red Blood Count 3.44 MC/CUMM (3.8-5.5); Red Cell Distribution Width 15.1 % (9.3-17.3); White Blood Count 14.2 T/CUMM (4-12)
[2021-12-05 06:34] LABS: Potassium 3.7 MMOL/L (3.5-5.1)
[2021-12-05 06:40] LABS: Anisocytosis 1+; Band Neutrophils 28 % (0-10); Eosinophils 2 % (0-10); Lymphocytes 3 % (20-55); Platelet Estimate Normal; Segmented Neutrophils 64 % (50-85); Total Cells Counted 100
[2021-12-05 06:41] LABS: Ovalocytes Few
[2021-12-05] MEDS: ACETAMINOPHEN 325 MG TABLET PO PRN (07:51)
[2021-12-05] MEDS ORDERED: MAGNESIUM SULF RIDER 2 GM/50 ML PREMIX IV ONE (08:28)
[2021-12-05] MEDS: MAGNESIUM OXIDE 400 MG TABLET PO SCH (09:05)
[2021-12-05] MEDS: LORATADINE 10 MG TABLET PO SCH ×2 (09:06→20:42)
[2021-12-05] MEDS: allopurinoL 100 MG TABLET PO SCH ×2 (09:06→20:42)
[2021-12-05] MEDS: FAMOTIDINE 20 MG TABLET PO SCH ×2 (09:06→20:42)
[2021-12-05] MEDS: TICAGRELOR 90 MG TABLET PO SCH ×2 (09:06→20:42)
[2021-12-05] MEDS: ASPIRIN EC 81 MG TABLET PO SCH (09:06)
[2021-12-05] MEDS ORDERED: PIPERACILLIN/TAZOBACTAM 2,250 MG in SODIUM CHLORIDE 0.9% 100 ML IV SCH (09:30)
[2021-12-05] MEDS: INSULIN REGULAR 100 UNIT/ML SUBCUT SCH ×3 (09:55→17:38)
[2021-12-05] MEDS: INSULIN NPH/REGULAR 70/30 100 UNIT/ML SUBCUT SCH ×2 (09:55→12:19)
[2021-12-05] MEDS: PIPERACILLIN/TAZOBACTAM 3,375 MG in SODIUM CHLORIDE 0.9% 100 ML IV SCH ×2 (11:30→17:37)
[2021-12-05] MEDS: ENOXAPARIN 30 MG/0.3 ML SYRINGE SUBCUT SCH (12:09)
[2021-12-05] MEDS: SODIUM CHLORIDE 0.9% 1,000 ML IV SCH (14:00)
[2021-12-05] MEDS: ALBUTEROL/IPRATROPIUM 3 ML NEB RESP TX SCH (19:39)
[2021-12-05] MEDS: DOXYCYCLINE HYCLATE 100 MG CAPSULE PO SCH (20:42)
[2021-12-05] MEDS: ROSUVASTATIN 20 MG TABLET PO SCH (20:42)
[2021-12-06 00:53] LABS: Amorphous Crystals,Urine Few /HPF (Few); Bilirubin,Urine Negative (Negative); Blood, Urine Negative (Negative); Glucose,Urine (UA) 150 mg/dL (Negative); Hyaline Casts,Urine 2 /LPF (0-3); Ketones,Urine Negative (Negative); Mucus,Urine Occasional /LPF (Occasional); Nitrite,Urine Negative (Negative); Protein,Urine >=500 MG/DL; Squamous Epithelial Cell,Urine Occasional /HPF (0-10); Urine Appearance CLOUDY (Clear); Urine Color Amber (Yellow); Urine Urobilinogen < 2.0 EU/DL (<2.0)
[2021-12-06] MEDS: ALBUTEROL/IPRATROPIUM 3 ML NEB RESP TX SCH ×4 (01:08→20:30)
[2021-12-06] MEDS: PIPERACILLIN/TAZOBACTAM 3,375 MG in SODIUM CHLORIDE 0.9% 100 ML IV SCH ×3 (02:26→17:49)
[2021-12-06] MEDS: ACETAMINOPHEN 325 MG TABLET PO PRN ×2 (04:04→16:00)
[2021-12-06 04:39] LABS: Basophils # 0.1 10*3/uL (0.0-0.2); Basophils % 0.3 % (0.0-0.8); Eosinophils # 0.1 10*3/uL (0.0-0.87); Eosinophils % 0.8 % (0.00-10.9); Hematocrit 25.6 VOL% (42.0-52.0); Hemoglobin 8.2 GM/DL (14.0-18.0); Immature Granulocytes % 0.9 %; Immature Granulocytes Absolute 0.14 #; Lymphocytes # 0.7 10*3/uL (1.4-4.0); Lymphocytes % 4.5 % (21.2-54.2); Mean Corpuscular Volume 79.3 FL (87-102); Monocytes % 6.9 % (1.7-12.7); Neutrophils % 86.6 % (38.7-73.9); Platelet Count 238 T/CUMM (130-400); Red Blood Count 3.23 MC/CUMM (3.8-5.5); White Blood Count 15.4 T/CUMM (4-12)
[2021-12-06 05:01] LABS: Band Neutrophils 2 % (0-10); Eosinophils 1 % (0-10); Hypochromia 1+; Lymphocytes 4 % (20-55); Microcytosis 1+; Platelet Estimate Adequate; Segmented Neutrophils 89 % (50-85); Total Cells Counted 100
[2021-12-06 05:04] LABS: Ferritin 177.6 ng/mL (26-388)
[2021-12-06 05:12] LABS: Calcium 7.8 MG/DL (8.5-10.1); Osmolality,Calculated 280.4 MOS/KG (273-304); Potassium 4.5 MMOL/L (3.5-5.1)
[2021-12-06 05:53] LABS: Sedimentation Rate-Westergren 121 MM/HR (0-20)
[2021-12-06 06:43] LABS: Parathyroid Hormone Intact 118.2 PG/ML (18.4-80.1)
[2021-12-06 07:43] LABS: Folate 10.84 NG/ML (5.38-24.0); Vitamin B12 250 PG/ML (211-911)
[2021-12-06] MEDS: LORATADINE 10 MG TABLET PO SCH ×2 (08:06→21:35)
[2021-12-06] MEDS: DOXYCYCLINE HYCLATE 100 MG CAPSULE PO SCH ×2 (08:06→21:36)
[2021-12-06] MEDS: MAGNESIUM OXIDE 400 MG TABLET PO SCH (08:06)
[2021-12-06] MEDS: FAMOTIDINE 20 MG TABLET PO SCH ×2 (08:06→21:35)
[2021-12-06] MEDS: TICAGRELOR 90 MG TABLET PO SCH ×2 (08:06→21:35)
[2021-12-06] MEDS: ASPIRIN EC 81 MG TABLET PO SCH (08:06)
[2021-12-06] MEDS: INSULIN NPH/REGULAR 70/30 100 UNIT/ML SUBCUT SCH (08:11)
[2021-12-06] MEDS: INSULIN REGULAR 100 UNIT/ML SUBCUT SCH ×3 (08:11→18:06)
[2021-12-06] MEDS: allopurinoL 100 MG TABLET PO SCH ×2 (08:12→21:35)
[2021-12-06] MEDS ORDERED: FERROUS GLUCONATE 240 MG TABLET PO SCH (10:00)
[2021-12-06] MEDS: ENOXAPARIN 30 MG/0.3 ML SYRINGE SUBCUT SCH (10:01)
[2021-12-06] MEDS: ERGOCALCIFEROL 50,000 UNIT CAPSULE PO SCH (10:01)
[2021-12-06] MEDS: GABAPENTIN 100 MG CAPSULE PO SCH ×2 (16:00→21:36)
[2021-12-06] MEDS: ONDANSETRON 4 MG/2 ML VIAL IV PRN (17:55)
[2021-12-06] MEDS: ROSUVASTATIN 20 MG TABLET PO SCH (21:35)
[2021-12-06] MEDS: FERROUS SULFATE 325 MG TABLET PO SCH (21:36)
[2021-12-07] MEDS: ALBUTEROL/IPRATROPIUM 3 ML NEB RESP TX SCH ×4 (01:05→19:03)
[2021-12-07] MEDS: PIPERACILLIN/TAZOBACTAM 3,375 MG in SODIUM CHLORIDE 0.9% 100 ML IV SCH ×2 (03:26→09:54)
[2021-12-07 07:12] LABS: Calcium 7.7 MG/DL (8.5-10.1); Osmolality,Calculated 286.5 MOS/KG (273-304)
[2021-12-07] MEDS: INSULIN NPH/REGULAR 70/30 100 UNIT/ML SUBCUT SCH (07:50)
[2021-12-07] MEDS: INSULIN REGULAR 100 UNIT/ML SUBCUT SCH ×3 (07:50→16:36)
[2021-12-07] MEDS: ASPIRIN EC 81 MG TABLET PO SCH (09:51)
[2021-12-07] MEDS: TICAGRELOR 90 MG TABLET PO SCH ×2 (09:51→21:05)
[2021-12-07] MEDS: LORATADINE 10 MG TABLET PO SCH ×2 (09:51→21:05)
[2021-12-07] MEDS: FERROUS SULFATE 325 MG TABLET PO SCH ×2 (09:51→21:05)
[2021-12-07] MEDS: DOXYCYCLINE HYCLATE 100 MG CAPSULE PO SCH ×2 (09:51→21:04)
[2021-12-07] MEDS: FAMOTIDINE 20 MG TABLET PO SCH ×2 (09:51→21:04)
[2021-12-07] MEDS: allopurinoL 100 MG TABLET PO SCH (09:52)
[2021-12-07] MEDS: MAGNESIUM OXIDE 400 MG TABLET PO SCH (09:52)
[2021-12-07] MEDS: GABAPENTIN 100 MG CAPSULE PO SCH ×2 (09:52→21:05)
[2021-12-07] MEDS: ENOXAPARIN 30 MG/0.3 ML SYRINGE SUBCUT SCH (09:54)
[2021-12-07] MEDS: ONDANSETRON 4 MG/2 ML VIAL IV PRN (10:02)
[2021-12-07] MEDS ORDERED: LACTATED RINGERS 1,000 ML IV SCH (11:00)
[2021-12-07] MEDS: ACETAMINOPHEN 325 MG TABLET PO PRN (11:42)
[2021-12-07 12:17] LABS: Bacteria,Urine Many /HPF (Few); Bilirubin,Urine Negative (Negative); Blood, Urine Large mg/dL (Negative); Glucose,Urine (UA) 50 mg/dL (Negative); Ketones,Urine 5 mg/dL (Negative); Nitrite,Urine Negative (Negative); Protein,Urine >=500 MG/DL; RBC,Urine 9989 /HPF (0-4); Urine Appearance CLOUDY (Clear); Urine Color Red (Yellow); Urine Specific Gravity 1.019 (1.001-1.035); Urine Urobilinogen < 2.0 EU/DL (<2.0)
[2021-12-07] MEDS: SODIUM CHLORIDE 0.9% 1,000 ML IV SCH (14:20)
[2021-12-07 15:56] LABS: Soluble Transf Receptor (sTfR) 3.3 mg/L (1.8 - 4.6)
[2021-12-07] MEDS: MEROPENEM 500 MG in SODIUM CHLORIDE 0.9% 100 ML IV SCH (21:05)
[2021-12-07] MEDS: ROSUVASTATIN 20 MG TABLET PO SCH (21:05)
[2021-12-08] MEDS: ALBUTEROL/IPRATROPIUM 3 ML NEB RESP TX SCH ×5 (01:13→23:55)
[2021-12-08] MEDS: SODIUM CHLORIDE 0.9% 1,000 ML IV SCH ×2 (04:16→19:41)
[2021-12-08 07:48] LABS: Basophils % 0.3 % (0.0-0.8); Eosinophils # 0.1 10*3/uL (0.0-0.87); Eosinophils % 1.1 % (0.00-10.9); Hematocrit 24.9 VOL% (42.0-52.0); Hemoglobin 8.1 GM/DL (14.0-18.0); Immature Granulocytes % 1.4 %; Immature Granulocytes Absolute 0.18 #; Lymphocytes # 0.6 10*3/uL (1.4-4.0); Lymphocytes % 4.8 % (21.2-54.2); Mean Corpuscular HGB Conc 32.5 GM/DL (32-36); Mean Corpuscular Volume 78.3 FL (87-102); Mean Platelet Volume 8.8 FL (9.6-12.0); Monocytes % 6.8 % (1.7-12.7); Neutrophils % 85.6 % (38.7-73.9); Platelet Count 262 T/CUMM (130-400); Red Blood Count 3.18 MC/CUMM (3.8-5.5); Red Cell Distribution Width 15.4 % (9.3-17.3)
[2021-12-08] MEDS: INSULIN NPH/REGULAR 70/30 100 UNIT/ML SUBCUT SCH (07:51)
[2021-12-08] MEDS: INSULIN REGULAR 100 UNIT/ML SUBCUT SCH ×3 (07:51→15:38)
[2021-12-08 08:05] LABS: Albumin 1.4 G/DL (3.4-5.0); Bilirubin,Total 0.4 MG/DL (0.20-1.00); Calcium 7.4 MG/DL (8.5-10.1); Osmolality,Calculated 287.5 MOS/KG (273-304); Total Protein 6.9 G/DL (6.4-8.2)
[2021-12-08 08:09] LABS: Eosinophils 1 % (0-10); Hypochromia 1+; Lymphocytes 6 % (20-55); Microcytosis 1+; Platelet Estimate Adequate; Segmented Neutrophils 88 % (50-85); Total Cells Counted 100
[2021-12-08] MEDS: LORATADINE 10 MG TABLET PO SCH ×2 (09:43→21:47)
[2021-12-08] MEDS: DOXYCYCLINE HYCLATE 100 MG CAPSULE PO SCH ×2 (09:43→21:35)
[2021-12-08] MEDS: TICAGRELOR 90 MG TABLET PO SCH ×2 (09:43→21:36)
[2021-12-08] MEDS: allopurinoL 100 MG TABLET PO SCH (09:43)
[2021-12-08] MEDS: ASPIRIN EC 81 MG TABLET PO SCH (09:43)
[2021-12-08] MEDS: FERROUS SULFATE 325 MG TABLET PO SCH ×2 (09:43→21:36)
[2021-12-08] MEDS: FAMOTIDINE 20 MG TABLET PO SCH ×2 (09:43→21:36)
[2021-12-08] MEDS: MAGNESIUM OXIDE 400 MG TABLET PO SCH (09:43)
[2021-12-08] MEDS: SODIUM BICARBONATE 650 MG TABLET PO SCH ×2 (14:22→21:35)
[2021-12-08] MEDS: ACETAMINOPHEN 325 MG TABLET PO PRN (15:54)
[2021-12-08] MEDS: MEROPENEM 500 MG in SODIUM CHLORIDE 0.9% 100 ML IV SCH (21:29)
[2021-12-08] MEDS: ROSUVASTATIN 20 MG TABLET PO SCH (21:35)
[2021-12-08] MEDS: GABAPENTIN 100 MG CAPSULE PO SCH (21:36)
[2021-12-09 05:53] LABS: Basophils % 0.4 % (0.0-0.8); Eosinophils # 0.1 10*3/uL (0.0-0.87); Eosinophils % 0.4 % (0.00-10.9); Hematocrit 24.2 VOL% (42.0-52.0); Hemoglobin 7.6 GM/DL (14.0-18.0); Immature Granulocytes % 1.2 %; Immature Granulocytes Absolute 0.14 #; Lymphocytes # 0.7 10*3/uL (1.4-4.0); Lymphocytes % 6.2 % (21.2-54.2); Mean Corpuscular HGB Conc 31.4 GM/DL (32-36); Mean Corpuscular Volume 79.1 FL (87-102); Mean Platelet Volume 9.1 FL (9.6-12.0); Monocytes % 9.9 % (1.7-12.7); Neutrophils % 81.9 % (38.7-73.9); Platelet Count 245 T/CUMM (130-400); Red Blood Count 3.06 MC/CUMM (3.8-5.5); Red Cell Distribution Width 15.7 % (9.3-17.3); White Blood Count 11.2 T/CUMM (4-12)
[2021-12-09 06:21] LABS: Lymphocytes 10 % (20-55); Platelet Estimate Adequate; Segmented Neutrophils 83 % (50-85); Total Cells Counted 100
[2021-12-09 06:22] LABS: Hypochromia 1+; Microcytosis 1+
[2021-12-09 06:31] LABS: Albumin 1.3 G/DL (3.4-5.0); Bilirubin,Total 0.7 MG/DL (0.20-1.00); Calcium 7.3 MG/DL (8.5-10.1); Potassium 4.9 MMOL/L (3.5-5.1); Total Protein 6.6 G/DL (6.4-8.2)
[2021-12-09] MEDS: ALBUTEROL/IPRATROPIUM 3 ML NEB RESP TX SCH ×3 (06:56→19:51)
[2021-12-09] MEDS: INSULIN REGULAR 100 UNIT/ML SUBCUT SCH ×3 (08:00→17:04)
[2021-12-09] MEDS: INSULIN NPH/REGULAR 70/30 100 UNIT/ML SUBCUT SCH (08:00)
[2021-12-09] MEDS: FAMOTIDINE 20 MG TABLET PO SCH ×2 (09:53→21:36)
[2021-12-09] MEDS: LORATADINE 10 MG TABLET PO SCH ×2 (09:53→21:36)
[2021-12-09] MEDS: TICAGRELOR 90 MG TABLET PO SCH ×2 (09:53→21:36)
[2021-12-09] MEDS: MAGNESIUM OXIDE 400 MG TABLET PO SCH (09:54)
[2021-12-09] MEDS: ASPIRIN EC 81 MG TABLET PO SCH (09:54)
[2021-12-09] MEDS: FERROUS SULFATE 325 MG TABLET PO SCH ×2 (09:54→21:36)
[2021-12-09] MEDS: SODIUM BICARBONATE 650 MG TABLET PO SCH ×3 (09:54→21:35)
[2021-12-09] MEDS: allopurinoL 100 MG TABLET PO SCH (09:54)
[2021-12-09] MEDS: DOXYCYCLINE HYCLATE 100 MG CAPSULE PO SCH ×2 (09:54→21:35)
[2021-12-09] MEDS: ENOXAPARIN 30 MG/0.3 ML SYRINGE SUBCUT SCH ×2 (11:43→13:05)
[2021-12-09] MEDS: MEROPENEM 500 MG in SODIUM CHLORIDE 0.9% 100 ML IV SCH (21:34)
[2021-12-09] MEDS: ROSUVASTATIN 20 MG TABLET PO SCH (21:36)
[2021-12-09] MEDS: GABAPENTIN 100 MG CAPSULE PO SCH (21:36)
[2021-12-10] MEDS: ALBUTEROL/IPRATROPIUM 3 ML NEB RESP TX SCH ×4 (01:35→20:08)
[2021-12-10 05:32] LABS: Basophils % 0.4 % (0.0-0.8); Eosinophils # 0.1 10*3/uL (0.0-0.87); Hematocrit 23.9 VOL% (42.0-52.0); Hemoglobin 7.6 GM/DL (14.0-18.0); Immature Granulocytes % 1.2 %; Immature Granulocytes Absolute 0.13 #; Lymphocytes # 0.5 10*3/uL (1.4-4.0); Lymphocytes % 4.4 % (21.2-54.2); Mean Corpuscular HGB Conc 31.8 GM/DL (32-36); Mean Corpuscular Volume 78.9 FL (87-102); Mean Platelet Volume 8.7 FL (9.6-12.0); Platelet Count 237 T/CUMM (130-400); Red Blood Count 3.03 MC/CUMM (3.8-5.5); Red Cell Distribution Width 15.9 % (9.3-17.3); White Blood Count 10.8 T/CUMM (4-12)
[2021-12-10 05:55] LABS: Band Neutrophils 1 % (0-10); Eosinophils 1 % (0-10); Hypochromia 1+; Lymphocytes 4 % (20-55); Microcytosis 1+; Ovalocytes Slight; Platelet Estimate Adequate; Segmented Neutrophils 86 % (50-85); Total Cells Counted 100
[2021-12-10 05:58] LABS: Calcium 7.5 MG/DL (8.5-10.1); Osmolality,Calculated 296.1 MOS/KG (273-304); Potassium 5.3 MMOL/L (3.5-5.1)
[2021-12-10] MEDS: SODIUM CHLORIDE 0.9% 1,000 ML IV SCH (13:15)
[2021-12-10 13:51] LABS: Hepatitis B Core IgM Quant 0.07 Index; Hepatitis B Surface Ag Quant < 0.10 Index; Hepatitis B Surface Ag Result Non-Reactive (NonReactive); Hepatitis C Virus Ab Quant > 11.00 Index; Hepatitis C Virus Ab Result Reactive (NonReactive)
[2021-12-10] MEDS: INSULIN NPH/REGULAR 70/30 100 UNIT/ML SUBCUT SCH (14:02)
[2021-12-10] MEDS: INSULIN REGULAR 100 UNIT/ML SUBCUT SCH ×2 (14:02→18:22)
[2021-12-10] MEDS: FERROUS SULFATE 325 MG TABLET PO SCH ×2 (14:03→21:43)
[2021-12-10] MEDS: DOXYCYCLINE HYCLATE 100 MG CAPSULE PO SCH ×2 (14:03→21:43)
[2021-12-10] MEDS: SODIUM BICARBONATE 650 MG TABLET PO SCH ×3 (14:03→21:43)
[2021-12-10] MEDS: FAMOTIDINE 20 MG TABLET PO SCH ×2 (14:03→21:43)
[2021-12-10] MEDS: LORATADINE 10 MG TABLET PO SCH ×2 (14:03→21:42)
[2021-12-10] MEDS: TICAGRELOR 90 MG TABLET PO SCH ×2 (14:03→21:42)
[2021-12-10] MEDS: MAGNESIUM OXIDE 400 MG TABLET PO SCH (14:03)
[2021-12-10] MEDS: ASPIRIN EC 81 MG TABLET PO SCH (14:03)
[2021-12-10] MEDS: ENOXAPARIN 30 MG/0.3 ML SYRINGE SUBCUT SCH (14:03)
[2021-12-10] MEDS: allopurinoL 100 MG TABLET PO SCH (14:05)
[2021-12-10] MEDS ORDERED: BUPIVACAINE MPF 0.25% 30 ML VIAL ONE (15:20)
[2021-12-10] MEDS ORDERED: HEPARIN 5,000 UNIT/1 ML VIAL ONE (15:20)
[2021-12-10] MEDS ORDERED: LIDOCAINE 1%/EPI INJ 20 ML VIAL ONE (15:20)
[2021-12-10] MEDS ORDERED: GLYCOPYRROLATE 0.4 MG/2 ML VIAL ONE (16:05)
[2021-12-10] MEDS ORDERED: propofoL 200 MG/20 ML VIAL IV ONE (16:05)
[2021-12-10] MEDS ORDERED: LIDOCAINE 2% 5 ML VIAL ONE (16:05)
[2021-12-10] MEDS ORDERED: KETAMINE 500 MG/10 ML VIAL ONE (16:05)
[2021-12-10] MEDS ORDERED: TISSUE ADHESIVE 1 EACH APPLICATOR TOP ONE (16:52)
[2021-12-10] MEDS ORDERED: HEPARIN 10,000 UNIT/10 ML VIAL IV SCH (18:15)
[2021-12-10] MEDS: ROSUVASTATIN 20 MG TABLET PO SCH (21:43)
[2021-12-10] MEDS: MEROPENEM 500 MG in SODIUM CHLORIDE 0.9% 100 ML IV SCH (22:53)
[2021-12-11] MEDS: ALBUTEROL/IPRATROPIUM 3 ML NEB RESP TX SCH ×4 (01:40→19:40)
[2021-12-11 05:47] LABS: Basophils # 0.1 10*3/uL (0.0-0.2); Basophils % 0.6 % (0.0-0.8); Eosinophils # 0.1 10*3/uL (0.0-0.87); Eosinophils % 1.6 % (0.00-10.9); Hematocrit 22.2 VOL% (42.0-52.0); Immature Granulocytes % 1.2 %; Lymphocytes # 0.5 10*3/uL (1.4-4.0); Lymphocytes % 5.8 % (21.2-54.2); Mean Corpuscular HGB Conc 31.5 GM/DL (32-36); Mean Corpuscular Volume 78.4 FL (87-102); Mean Platelet Volume 8.6 FL (9.6-12.0); Monocytes % 12.8 % (1.7-12.7); Platelet Count 209 T/CUMM (130-400); Red Blood Count 2.83 MC/CUMM (3.8-5.5); Red Cell Distribution Width 16.1 % (9.3-17.3); White Blood Count 8.1 T/CUMM (4-12)
[2021-12-11 05:48] LABS: Calcium 8.2 MG/DL (8.5-10.1); Osmolality,Calculated 289.8 MOS/KG (273-304); Potassium 4.8 MMOL/L (3.5-5.1)
[2021-12-11] MEDS ORDERED: SODIUM CHLORIDE 0.9% 1,000 ML IV PRN (07:41)
[2021-12-11 14:02] LABS: Amorphous Crystals,Urine Occasional /HPF (Few); Bilirubin,Urine Negative (Negative); Blood, Urine Large mg/dL (Negative); Glucose,Urine (UA) 50 mg/dL (Negative); Ketones,Urine 5 mg/dL (Negative); Mucus,Urine Occasional /LPF (Occasional); Nitrite,Urine Negative (Negative); Protein,Urine >=500 MG/DL; RBC,Urine 212 /HPF (0-4); Squamous Epithelial Cell,Urine Occasional /HPF (0-10); Urine Appearance CLOUDY (Clear); Urine Color Amber (Yellow); Urine Specific Gravity 1.018 (1.001-1.035); Urine Urobilinogen < 2.0 EU/DL (<2.0)
[2021-12-11] MEDS: INSULIN NPH/REGULAR 70/30 100 UNIT/ML SUBCUT SCH (18:28)
[2021-12-11] MEDS: INSULIN REGULAR 100 UNIT/ML SUBCUT SCH (18:28)
[2021-12-11] MEDS: DOXYCYCLINE HYCLATE 100 MG CAPSULE PO SCH ×2 (18:29→22:04)
[2021-12-11] MEDS: FERROUS SULFATE 325 MG TABLET PO SCH ×2 (18:29→22:03)
[2021-12-11] MEDS: FAMOTIDINE 20 MG TABLET PO SCH ×2 (18:29→22:03)
[2021-12-11] MEDS: TICAGRELOR 90 MG TABLET PO SCH ×2 (18:29→22:03)
[2021-12-11] MEDS: MAGNESIUM OXIDE 400 MG TABLET PO SCH (18:29)
[2021-12-11] MEDS: SODIUM BICARBONATE 650 MG TABLET PO SCH ×2 (18:29→22:04)
[2021-12-11] MEDS: ASPIRIN EC 81 MG TABLET PO SCH (18:29)
[2021-12-11] MEDS: LORATADINE 10 MG TABLET PO SCH ×2 (18:29→22:03)
[2021-12-11] MEDS: MEROPENEM 500 MG in SODIUM CHLORIDE 0.9% 100 ML IV SCH (21:12)
[2021-12-11] MEDS: ROSUVASTATIN 20 MG TABLET PO SCH (22:03)
[2021-12-12] MEDS: ALBUTEROL/IPRATROPIUM 3 ML NEB RESP TX SCH ×4 (01:00→19:45)
[2021-12-12 05:26] LABS: Basophils % 0.5 % (0.0-0.8); Eosinophils # 0.3 10*3/uL (0.0-0.87); Eosinophils % 4.3 % (0.00-10.9); Hematocrit 27.6 VOL% (42.0-52.0); Immature Granulocytes % 1.4 %; Immature Granulocytes Absolute 0.08 #; Lymphocytes # 0.6 10*3/uL (1.4-4.0); Lymphocytes % 9.8 % (21.2-54.2); Mean Corpuscular HGB Conc 32.6 GM/DL (32-36); Mean Corpuscular Volume 78.9 FL (87-102); Mean Platelet Volume 8.7 FL (9.6-12.0); Monocytes % 18.7 % (1.7-12.7); Neutrophils % 65.3 % (38.7-73.9); Platelet Count 187 T/CUMM (130-400); Red Cell Distribution Width 15.9 % (9.3-17.3); White Blood Count 5.8 T/CUMM (4-12)
[2021-12-12 05:43] LABS: Calcium 8.1 MG/DL (8.5-10.1); Osmolality,Calculated 288.3 MOS/KG (273-304); Potassium 4.2 MMOL/L (3.5-5.1)
[2021-12-12 06:01] LABS: Eosinophils 4 % (0-10); Lymphocytes 4 % (20-55); Segmented Neutrophils 83 % (50-85); Total Cells Counted 100
[2021-12-12 06:02] LABS: Hypochromia 1+; Microcytosis 1+; Platelet Estimate Adequate
[2021-12-12] MEDS: FERROUS SULFATE 325 MG TABLET PO SCH ×2 (11:47→21:19)
[2021-12-12] MEDS: FAMOTIDINE 20 MG TABLET PO SCH ×2 (11:47→21:19)
[2021-12-12] MEDS: TICAGRELOR 90 MG TABLET PO SCH ×2 (11:48→21:19)
[2021-12-12] MEDS: MAGNESIUM OXIDE 400 MG TABLET PO SCH (11:48)
[2021-12-12] MEDS: ASPIRIN EC 81 MG TABLET PO SCH (11:48)
[2021-12-12] MEDS: LORATADINE 10 MG TABLET PO SCH ×2 (11:48→21:19)
[2021-12-12] MEDS: DOXYCYCLINE HYCLATE 100 MG CAPSULE PO SCH ×2 (11:48→21:19)
[2021-12-12] MEDS: SODIUM BICARBONATE 650 MG TABLET PO SCH ×3 (11:48→21:19)
[2021-12-12] MEDS: INSULIN NPH/REGULAR 70/30 100 UNIT/ML SUBCUT SCH (11:55)
[2021-12-12] MEDS: INSULIN REGULAR 100 UNIT/ML SUBCUT SCH ×3 (12:16→15:50)
[2021-12-12] MEDS: MEROPENEM 500 MG in SODIUM CHLORIDE 0.9% 100 ML IV SCH (21:17)
[2021-12-12] MEDS: ROSUVASTATIN 20 MG TABLET PO SCH (21:19)
[2021-12-13] MEDS: ALBUTEROL/IPRATROPIUM 3 ML NEB RESP TX SCH ×4 (00:55→19:00)
[2021-12-13 05:42] LABS: Basophils % 0.6 % (0.0-0.8); Eosinophils # 0.3 10*3/uL (0.0-0.87); Hematocrit 29.2 VOL% (42.0-52.0); Hemoglobin 9.5 GM/DL (14.0-18.0); Immature Granulocytes % 0.8 %; Immature Granulocytes Absolute 0.05 #; Lymphocytes # 0.7 10*3/uL (1.4-4.0); Lymphocytes % 11.8 % (21.2-54.2); Mean Corpuscular HGB Conc 32.5 GM/DL (32-36); Mean Corpuscular Volume 79.1 FL (87-102); Mean Platelet Volume 8.7 FL (9.6-12.0); Monocytes % 12.2 % (1.7-12.7); Neutrophils % 69.6 % (38.7-73.9); Platelet Count 175 T/CUMM (130-400); Red Blood Count 3.69 MC/CUMM (3.8-5.5); Red Cell Distribution Width 15.7 % (9.3-17.3); White Blood Count 6.2 T/CUMM (4-12)
[2021-12-13 05:54] LABS: Calcium 8.1 MG/DL (8.5-10.1); Osmolality,Calculated 280.8 MOS/KG (273-304); Potassium 3.7 MMOL/L (3.5-5.1)
[2021-12-13] MEDS: INSULIN NPH/REGULAR 70/30 100 UNIT/ML SUBCUT SCH (07:38)
[2021-12-13] MEDS: INSULIN REGULAR 100 UNIT/ML SUBCUT SCH ×3 (07:39→16:49)
[2021-12-13] MEDS: TICAGRELOR 90 MG TABLET PO SCH ×2 (09:16→21:26)
[2021-12-13] MEDS: FERROUS SULFATE 325 MG TABLET PO SCH ×2 (09:16→21:26)
[2021-12-13] MEDS: LORATADINE 10 MG TABLET PO SCH ×2 (09:16→21:26)
[2021-12-13] MEDS: ASPIRIN EC 81 MG TABLET PO SCH (09:16)
[2021-12-13] MEDS: FAMOTIDINE 20 MG TABLET PO SCH ×2 (09:16→21:27)
[2021-12-13] MEDS: SODIUM BICARBONATE 650 MG TABLET PO SCH ×3 (09:16→21:27)
[2021-12-13] MEDS: MAGNESIUM OXIDE 400 MG TABLET PO SCH (09:16)
[2021-12-13] MEDS: ERGOCALCIFEROL 50,000 UNIT CAPSULE PO SCH (09:16)
[2021-12-13] MEDS: carvediloL 3.125 MG TABLET PO SCH ×2 (09:16→21:26)
[2021-12-13] MEDS ORDERED: SODIUM CHLORIDE 0.9% 250 ML IV ONE (13:16)
[2021-12-13] MEDS: MEROPENEM 500 MG in SODIUM CHLORIDE 0.9% 100 ML IV SCH (21:21)
[2021-12-13] MEDS: ROSUVASTATIN 20 MG TABLET PO SCH (21:26)
[2021-12-14] MEDS: ALBUTEROL/IPRATROPIUM 3 ML NEB RESP TX SCH ×4 (00:10→19:20)
[2021-12-14 05:33] LABS: Basophils % 0.6 % (0.0-0.8); Eosinophils # 0.4 10*3/uL (0.0-0.87); Eosinophils % 5.7 % (0.00-10.9); Hemoglobin 10.8 GM/DL (14.0-18.0); Immature Granulocytes % 0.9 %; Immature Granulocytes Absolute 0.06 #; Lymphocytes # 0.6 10*3/uL (1.4-4.0); Lymphocytes % 9.2 % (21.2-54.2); Mean Corpuscular HGB Conc 31.8 GM/DL (32-36); Mean Corpuscular Volume 80.4 FL (87-102); Monocytes % 13.3 % (1.7-12.7); Neutrophils % 70.3 % (38.7-73.9); Platelet Count 158 T/CUMM (130-400); Red Blood Count 4.23 MC/CUMM (3.8-5.5); Red Cell Distribution Width 15.6 % (9.3-17.3); White Blood Count 6.9 T/CUMM (4-12)
[2021-12-14 06:11] LABS: Calcium 7.6 MG/DL (8.5-10.1); Osmolality,Calculated 286.7 MOS/KG (273-304); Potassium 4.1 MMOL/L (3.5-5.1)
[2021-12-14] MEDS: FAMOTIDINE 20 MG TABLET PO SCH ×2 (08:18→21:50)
[2021-12-14] MEDS: ASPIRIN EC 81 MG TABLET PO SCH (08:19)
[2021-12-14] MEDS: TICAGRELOR 90 MG TABLET PO SCH ×2 (08:19→21:48)
[2021-12-14] MEDS: FERROUS SULFATE 325 MG TABLET PO SCH ×2 (08:19→21:47)
[2021-12-14] MEDS: SODIUM BICARBONATE 650 MG TABLET PO SCH ×3 (08:19→21:48)
[2021-12-14] MEDS: LORATADINE 10 MG TABLET PO SCH ×2 (08:19→21:47)
[2021-12-14] MEDS: MAGNESIUM OXIDE 400 MG TABLET PO SCH (08:19)
[2021-12-14] MEDS: amLODIPine 5 MG TABLET PO SCH (08:19)
[2021-12-14] MEDS: carvediloL 3.125 MG TABLET PO SCH ×2 (08:19→21:47)
[2021-12-14] MEDS: INSULIN REGULAR 100 UNIT/ML SUBCUT SCH ×3 (09:14→19:11)
[2021-12-14] MEDS: INSULIN NPH/REGULAR 70/30 100 UNIT/ML SUBCUT SCH (09:14)
[2021-12-14] MEDS ORDERED: DEXTROSE 10% 250 ML BAG IV PRN (11:00)
[2021-12-14] MEDS: ONDANSETRON 4 MG/2 ML VIAL IV PRN (12:06)
[2021-12-14] MEDS: ROSUVASTATIN 20 MG TABLET PO SCH (21:47)
[2021-12-14] MEDS: MEROPENEM 500 MG in SODIUM CHLORIDE 0.9% 100 ML IV SCH (21:47)
[2021-12-15] MEDS: ALBUTEROL/IPRATROPIUM 3 ML NEB RESP TX SCH ×4 (02:24→18:56)
[2021-12-15 04:57] LABS: Basophils % 0.6 % (0.0-0.8); Eosinophils # 0.3 10*3/uL (0.0-0.87); Eosinophils % 4.8 % (0.00-10.9); Hematocrit 33.5 VOL% (42.0-52.0); Hemoglobin 10.3 GM/DL (14.0-18.0); Immature Granulocytes % 1.1 %; Immature Granulocytes Absolute 0.07 #; Lymphocytes # 0.8 10*3/uL (1.4-4.0); Lymphocytes % 13.5 % (21.2-54.2); Mean Corpuscular HGB Conc 30.7 GM/DL (32-36); Mean Corpuscular Volume 80.3 FL (87-102); Mean Platelet Volume 9.2 FL (9.6-12.0); Monocytes % 15.2 % (1.7-12.7); Neutrophils % 64.8 % (38.7-73.9); Platelet Count 131 T/CUMM (130-400); Red Blood Count 4.17 MC/CUMM (3.8-5.5); Red Cell Distribution Width 15.4 % (9.3-17.3); White Blood Count 6.2 T/CUMM (4-12)
[2021-12-15 05:22] LABS: Calcium 7.9 MG/DL (8.5-10.1); Osmolality,Calculated 280.8 MOS/KG (273-304); Potassium 4.2 MMOL/L (3.5-5.1)
[2021-12-15] MEDS: LORATADINE 10 MG TABLET PO SCH ×2 (08:38→21:31)
[2021-12-15] MEDS: MAGNESIUM OXIDE 400 MG TABLET PO SCH (08:38)
[2021-12-15] MEDS: carvediloL 3.125 MG TABLET PO SCH (08:38)
[2021-12-15] MEDS: TICAGRELOR 90 MG TABLET PO SCH ×2 (08:38→21:25)
[2021-12-15] MEDS: amLODIPine 5 MG TABLET PO SCH (08:38)
[2021-12-15] MEDS: FAMOTIDINE 20 MG TABLET PO SCH ×2 (08:38→21:23)
[2021-12-15] MEDS: SODIUM BICARBONATE 650 MG TABLET PO SCH ×3 (08:38→21:24)
[2021-12-15] MEDS: INSULIN REGULAR 100 UNIT/ML SUBCUT SCH ×3 (08:39→17:17)
[2021-12-15] MEDS: ASPIRIN EC 81 MG TABLET PO SCH (08:39)
[2021-12-15] MEDS: FERROUS SULFATE 325 MG TABLET PO SCH ×2 (08:44→21:25)
[2021-12-15] MEDS: INSULIN NPH/REGULAR 70/30 100 UNIT/ML SUBCUT SCH (13:25)
[2021-12-15] MEDS: ACETAMINOPHEN 325 MG TABLET PO PRN (15:34)
[2021-12-15] MEDS: ONDANSETRON 4 MG/2 ML VIAL IV PRN (15:34)
[2021-12-15] MEDS: carvediloL 6.25 MG TABLET PO SCH (21:23)
[2021-12-15] MEDS: ROSUVASTATIN 20 MG TABLET PO SCH (21:23)
[2021-12-16] MEDS: ALBUTEROL/IPRATROPIUM 3 ML NEB RESP TX SCH ×4 (00:09→19:25)
[2021-12-16] MEDS: ONDANSETRON 4 MG/2 ML VIAL IV PRN (01:50)
[2021-12-16 05:51] LABS: Basophils # 0.1 10*3/uL (0.0-0.2); Basophils % 0.9 % (0.0-0.8); Eosinophils # 0.3 10*3/uL (0.0-0.87); Eosinophils % 5.8 % (0.00-10.9); Hemoglobin 10.1 GM/DL (14.0-18.0); Immature Granulocytes % 1.1 %; Immature Granulocytes Absolute 0.06 #; Lymphocytes # 0.7 10*3/uL (1.4-4.0); Lymphocytes % 11.6 % (21.2-54.2); Mean Corpuscular HGB Conc 29.7 GM/DL (32-36); Mean Corpuscular Volume 85.6 FL (87-102); Mean Platelet Volume 9.8 FL (9.6-12.0); Monocytes % 12.8 % (1.7-12.7); Neutrophils % 67.8 % (38.7-73.9); Platelet Count 134 T/CUMM (130-400); Red Blood Count 3.97 MC/CUMM (3.8-5.5); Red Cell Distribution Width 15.5 % (9.3-17.3); White Blood Count 5.7 T/CUMM (4-12)
[2021-12-16 06:41] LABS: Calcium 7.4 MG/DL (8.5-10.1); Osmolality,Calculated 288.8 MOS/KG (273-304); Potassium 4.5 MMOL/L (3.5-5.1)
[2021-12-16] MEDS: ASPIRIN EC 81 MG TABLET PO SCH (08:37)
[2021-12-16] MEDS: carvediloL 6.25 MG TABLET PO SCH ×2 (08:37→21:38)
[2021-12-16] MEDS: FERROUS SULFATE 325 MG TABLET PO SCH ×2 (08:37→21:35)
[2021-12-16] MEDS: SODIUM BICARBONATE 650 MG TABLET PO SCH ×3 (08:37→21:35)
[2021-12-16] MEDS: amLODIPine 5 MG TABLET PO SCH (08:37)
[2021-12-16] MEDS: MAGNESIUM OXIDE 400 MG TABLET PO SCH (08:37)
[2021-12-16] MEDS: TICAGRELOR 90 MG TABLET PO SCH ×2 (08:37→21:36)
[2021-12-16] MEDS: FAMOTIDINE 20 MG TABLET PO SCH ×2 (08:37→21:35)
[2021-12-16] MEDS: INSULIN NPH/REGULAR 70/30 100 UNIT/ML SUBCUT SCH (08:38)
[2021-12-16] MEDS: INSULIN REGULAR 100 UNIT/ML SUBCUT SCH ×3 (08:38→17:22)
[2021-12-16] MEDS: LORATADINE 10 MG TABLET PO SCH ×2 (08:38→21:35)
[2021-12-16] MEDS: ROSUVASTATIN 20 MG TABLET PO SCH (21:35)
[2021-12-17] MEDS: ALBUTEROL/IPRATROPIUM 3 ML NEB RESP TX SCH ×4 (01:28→19:30)
[2021-12-17 05:09] LABS: Basophils # 0.1 10*3/uL (0.0-0.2); Basophils % 1.1 % (0.0-0.8); Eosinophils # 0.3 10*3/uL (0.0-0.87); Eosinophils % 4.5 % (0.00-10.9); Hematocrit 34.3 VOL% (42.0-52.0); Hemoglobin 10.4 GM/DL (14.0-18.0); Immature Granulocytes % 1.5 %; Immature Granulocytes Absolute 0.11 #; Lymphocytes # 1.2 10*3/uL (1.4-4.0); Lymphocytes % 15.6 % (21.2-54.2); Mean Corpuscular HGB Conc 30.3 GM/DL (32-36); Mean Corpuscular Volume 85.1 FL (87-102); Mean Platelet Volume 9.9 FL (9.6-12.0); Monocytes % 14.6 % (1.7-12.7); Neutrophils % 62.7 % (38.7-73.9); Platelet Count 128 T/CUMM (130-400); Red Blood Count 4.03 MC/CUMM (3.8-5.5); Red Cell Distribution Width 15.7 % (9.3-17.3); White Blood Count 7.5 T/CUMM (4-12)
[2021-12-17 05:22] LABS: Calcium 7.6 MG/DL (8.5-10.1); Potassium 4.2 MMOL/L (3.5-5.1)
[2021-12-17] MEDS: carvediloL 6.25 MG TABLET PO SCH ×2 (09:24→20:58)
[2021-12-17] MEDS: SODIUM BICARBONATE 650 MG TABLET PO SCH ×3 (09:25→20:57)
[2021-12-17] MEDS: TICAGRELOR 90 MG TABLET PO SCH ×2 (09:25→20:58)
[2021-12-17] MEDS: amLODIPine 5 MG TABLET PO SCH (09:25)
[2021-12-17] MEDS: ASPIRIN EC 81 MG TABLET PO SCH (09:25)
[2021-12-17] MEDS: FERROUS SULFATE 325 MG TABLET PO SCH ×2 (09:25→20:58)
[2021-12-17] MEDS: LORATADINE 10 MG TABLET PO SCH ×2 (09:25→20:58)
[2021-12-17] MEDS: MAGNESIUM OXIDE 400 MG TABLET PO SCH (09:25)
[2021-12-17] MEDS: FAMOTIDINE 20 MG TABLET PO SCH ×2 (09:25→20:58)
[2021-12-17] MEDS: INSULIN NPH/REGULAR 70/30 100 UNIT/ML SUBCUT SCH (10:41)
[2021-12-17] MEDS: INSULIN REGULAR 100 UNIT/ML SUBCUT SCH ×3 (10:41→18:18)
[2021-12-17] MEDS: DESITIN 4OZ/NYSTATIN 15 GRAM MIXTURE PASTE TOP SCH ×2 (12:00→20:58)
[2021-12-17] MEDS: ROSUVASTATIN 20 MG TABLET PO SCH (20:58)
[2021-12-18] MEDS: ALBUTEROL/IPRATROPIUM 3 ML NEB RESP TX SCH ×4 (00:52→19:34)
[2021-12-18] MEDS: INSULIN NPH/REGULAR 70/30 100 UNIT/ML SUBCUT SCH (07:48)
[2021-12-18] MEDS: INSULIN REGULAR 100 UNIT/ML SUBCUT SCH ×3 (07:49→16:06)
[2021-12-18] MEDS ORDERED: diphenhydrAMINE CAP 25 MG CAPSULE PO PRN (09:05)
[2021-12-18] MEDS: FAMOTIDINE 20 MG TABLET PO SCH ×2 (09:29→21:52)
[2021-12-18] MEDS: ASPIRIN EC 81 MG TABLET PO SCH (09:29)
[2021-12-18] MEDS: SODIUM BICARBONATE 650 MG TABLET PO SCH ×3 (09:29→21:52)
[2021-12-18] MEDS: FERROUS SULFATE 325 MG TABLET PO SCH ×2 (09:30→21:52)
[2021-12-18] MEDS: amLODIPine 5 MG TABLET PO SCH (09:30)
[2021-12-18] MEDS: carvediloL 6.25 MG TABLET PO SCH ×2 (09:30→21:51)
[2021-12-18] MEDS: TICAGRELOR 90 MG TABLET PO SCH ×2 (09:30→21:52)
[2021-12-18] MEDS: DESITIN 4OZ/NYSTATIN 15 GRAM MIXTURE PASTE TOP SCH ×2 (09:31→21:52)
[2021-12-18] MEDS: MAGNESIUM OXIDE 400 MG TABLET PO SCH (09:31)
[2021-12-18] MEDS: LORATADINE 10 MG TABLET PO SCH (10:22)
[2021-12-18] MEDS ORDERED: TUBERCULIN SKIN TEST 0.1 ML SYRINGE INTRADERM ONE (12:29)
[2021-12-18] MEDS: ROSUVASTATIN 20 MG TABLET PO SCH (21:51)
[2021-12-19] MEDS: ALBUTEROL/IPRATROPIUM 3 ML NEB RESP TX SCH ×3 (01:17→13:26)
[2021-12-19 08:13] VITALS: BP 157/70
[2021-12-19] MEDS: FAMOTIDINE 20 MG TABLET PO SCH (08:35)
[2021-12-19] MEDS: SODIUM BICARBONATE 650 MG TABLET PO SCH ×2 (08:35→14:35)
[2021-12-19] MEDS: TICAGRELOR 90 MG TABLET PO SCH (08:35)
[2021-12-19] MEDS: FERROUS SULFATE 325 MG TABLET PO SCH (08:35)
[2021-12-19] MEDS: ASPIRIN EC 81 MG TABLET PO SCH (08:36)
[2021-12-19] MEDS: MAGNESIUM OXIDE 400 MG TABLET PO SCH (08:36)
[2021-12-19] MEDS: DESITIN 4OZ/NYSTATIN 15 GRAM MIXTURE PASTE TOP SCH (08:36)
[2021-12-19] MEDS ORDERED: LORATADINE 10 MG TABLET PO SCH (09:00)
[2021-12-19] MEDS: INSULIN REGULAR 100 UNIT/ML SUBCUT SCH ×2 (09:19→13:54)
[2021-12-19] MEDS: INSULIN NPH/REGULAR 70/30 100 UNIT/ML SUBCUT SCH (09:19)
[2021-12-19] MEDS: amLODIPine 5 MG TABLET PO SCH (14:36)
[2021-12-19] MEDS: carvediloL 6.25 MG TABLET PO SCH (14:36)
== END 2021-12-19 16:18 | DRG 981 ==
LOC: N.CL 10:41 → N.TELEN 10:41 → N.CL 10:43 → N.TELEN 19:41
PROVIDERS: ADMIT Internal Medicine Cardiovascular Disease; ATTEND Internal Medicine Cardiovascular Disease
PROC: CLCCHCL (ICD-10-PCS; 2021-12-03 15:15)

== ENCOUNTER 2022-01-16 13:35 | Inpatient (IN) ==
[2022-01-16] MEDS: DOPamine 800 MG/250 ML PREMIX IV PRN (14:00)
[2022-01-16] MEDS ORDERED: cefTRIAXone 1,000 MG in SODIUM CHLORIDE 0.9% 100 ML IV STA (14:16)
[2022-01-16] MEDS ORDERED: SODIUM CHLORIDE 0.9% 1,000 ML IV STA (14:16)
[2022-01-16 14:26] LABS: Basophils % 0.2 % (0.0-0.8); Eosinophils # 0.1 10*3/uL (0.0-0.87); Eosinophils % 0.3 % (0.00-10.9); Hematocrit 31.7 VOL% (42.0-52.0); Immature Granulocytes % 0.5 %; Immature Granulocytes Absolute 0.09 #; Lymphocytes # 2.4 10*3/uL (1.4-4.0); Lymphocytes % 13.4 % (21.2-54.2); Mean Corpuscular HGB Conc 31.5 GM/DL (32-36); Mean Corpuscular Volume 83.6 FL (87-102); Mean Platelet Volume 9.7 FL (9.6-12.0); Monocytes % 5.6 % (1.7-12.7); Platelet Count 175 T/CUMM (130-400); Red Blood Count 3.79 MC/CUMM (3.8-5.5); Red Cell Distribution Width 17.7 % (9.3-17.3); White Blood Count 17.9 T/CUMM (4-12)
[2022-01-16 14:39] LABS: Albumin 1.9 G/DL (3.4-5.0); Bilirubin,Total 0.8 MG/DL (0.20-1.00); Calcium 7.7 MG/DL (8.5-10.1); Osmolality,Calculated 279.7 MOS/KG (273-304); Total Protein 7.4 G/DL (6.4-8.2)
[2022-01-16 14:52] LABS: Potassium 2.4 MMOL/L (3.5-5.1)
[2022-01-16 14:58] LABS: Eosinophils 2 % (0-10); Lymphocytes 15 % (20-55); Metamyelocytes 1 %; Segmented Neutrophils 76 % (50-85); Total Cells Counted 100
[2022-01-16 14:59] LABS: Hypochromia Slight; Microcytosis Slight; Ovalocytes Slight; Platelet Estimate Normal
[2022-01-16] MEDS ORDERED: VANCOMYCIN INJ 1,000 MG in SODIUM CHLORIDE 0.9% 250 ML IV STA (15:19)
[2022-01-16 15:21] LABS: ABG Base Excess 3.6 MMOL/L (-2.5-2.5); ABG HCO3 28.3 MMOL/L (20-26); ABG Oxygen Saturation 98.2 % (95-100); ABG PCO2 43.4 MM HG (35-48); ABG PH 7.432 (7.35-7.45); ABG PO2 122.5 MM HG (80-95); ABG TCO2 29.6 MMOL/L (23-27)
[2022-01-16] MEDS ORDERED: MORPHINE 2 MG/1 ML SYRINGE IV PRN (16:12)
[2022-01-16] MEDS ORDERED: ALBUTEROL 2.5 MG/3 ML NEB RESP TX PRN (16:12)
[2022-01-16] MEDS: PANTOPRAZOLE 40 MG VIAL IV SCH (17:10)
[2022-01-16] MEDS ORDERED: ALBUTEROL/IPRATROPIUM 3 ML NEB RESP TX PRN (17:30)
[2022-01-16] MEDS ORDERED: LEVOFLOXACIN INJ 750 MG/150 ML PREMIX IV ONE (18:00)
[2022-01-16] MEDS ORDERED: ROCURONIUM 100 MG/10 ML VIAL IV STA (18:34)
[2022-01-16] MEDS ORDERED: ETOMIDATE 20 MG/10 ML VIAL IV STA (18:35)
[2022-01-16] MEDS ORDERED: ETOMIDATE 20 MG/10 ML VIAL IV ONE (18:46)
[2022-01-16] MEDS: POTASSIUM CHLORIDE RIDER 10 MEQ/100 ML PREMIX IV PRN ×2 (19:01→20:49)
[2022-01-16 19:35] LABS: ABG Base Excess 2.9 MMOL/L (-2.5-2.5); ABG HCO3 28.4 MMOL/L (20-26); ABG Oxygen Saturation 99.1 % (95-100); ABG PCO2 48.5 MM HG (35-48); ABG PH 7.386 (7.35-7.45); ABG PO2 299.1 MM HG (80-95); ABG TCO2 29.9 MMOL/L (23-27)
[2022-01-16] MEDS: MIDAZOLAM 100 MG in SODIUM CHLORIDE 0.9% 80 ML IV PRN (20:00)
[2022-01-16] MEDS: POTASSIUM CHLORIDE RIDER 20 MEQ/100 ML PREMIX IV SCH (22:01)
[2022-01-17] LABS: Bacteria,Urine Occasional /HPF (Few); Bilirubin,Urine Negative (Negative); Blood, Urine Large mg/dL (Negative); Glucose,Urine (UA) 50 mg/dL (Negative); Hyaline Casts,Urine 1 /LPF (0-3); Ketones,Urine 5 mg/dL (Negative); Mucus,Urine Occasional /LPF (Occasional); Nitrite,Urine Negative (Negative); Protein,Urine >=500 MG/DL; RBC,Urine 57 /HPF (0-4); Squamous Epithelial Cell,Urine Occasional /HPF (0-10); Urine Appearance Slightly Hazy (Clear); Urine Color Yellow (Yellow); Urine Urobilinogen < 2.0 EU/DL (<2.0)
[2022-01-17] MEDS: POTASSIUM CHLORIDE RIDER 20 MEQ/100 ML PREMIX IV SCH (00:10)
[2022-01-17 03:44] LABS: ABG Base Excess 3.7 MMOL/L (-2.5-2.5); ABG HCO3 27.9 MMOL/L (20-26); ABG Oxygen Saturation 98.3 % (95-100); ABG PCO2 40.5 MM HG (35-48); ABG PH 7.456 (7.35-7.45); ABG PO2 122.7 MM HG (80-95); ABG TCO2 29.1 MMOL/L (23-27)
[2022-01-17 03:56] LABS: Basophils # 0.1 10*3/uL (0.0-0.2); Basophils % 0.4 % (0.0-0.8); Eosinophils % 0.1 % (0.00-10.9); Hematocrit 26.1 VOL% (42.0-52.0); Hemoglobin 8.5 GM/DL (14.0-18.0); Immature Granulocytes % 0.7 %; Immature Granulocytes Absolute 0.09 #; Lymphocytes % 14.7 % (21.2-54.2); Mean Corpuscular HGB Conc 32.6 GM/DL (32-36); Mean Corpuscular Volume 83.4 FL (87-102); Mean Platelet Volume 9.7 FL (9.6-12.0); Monocytes % 5.8 % (1.7-12.7); Neutrophils % 78.3 % (38.7-73.9); Platelet Count 139 T/CUMM (130-400); Red Blood Count 3.13 MC/CUMM (3.8-5.5); Red Cell Distribution Width 17.9 % (9.3-17.3); White Blood Count 13.4 T/CUMM (4-12)
[2022-01-17 04:16] LABS: Albumin 1.6 G/DL (3.4-5.0); Bilirubin,Total 0.5 MG/DL (0.20-1.00); Calcium 7.3 MG/DL (8.5-10.1); Osmolality,Calculated 284.5 MOS/KG (273-304); Potassium 3.5 MMOL/L (3.5-5.1); Total Protein 6.5 G/DL (6.4-8.2)
[2022-01-17 04:19] LABS: Band Neutrophils 1 % (0-10); Hypochromia 1+; Lymphocytes 12 % (20-55); Microcytosis 1+; Platelet Estimate Normal; Segmented Neutrophils 85 % (50-85); Total Cells Counted 100
[2022-01-17] MEDS: DOPamine 800 MG/250 ML PREMIX IV PRN ×2 (05:18→21:39)
[2022-01-17] MEDS: ASPIRIN EC 81 MG TABLET PO SCH (08:31)
[2022-01-17] MEDS ORDERED: predniSONE 20 MG TABLET PO SCH (09:00)
[2022-01-17 09:06] LABS: INR 1.2; PT Patient Result 13.2 SECS (10.5-12.0)
[2022-01-17] MEDS: ROSUVASTATIN 20 MG TABLET PO SCH (09:20)
[2022-01-17] MEDS: FERROUS SULFATE 325 MG TABLET PO SCH ×2 (09:20→21:00)
[2022-01-17] MEDS: methylPREDNISolone SOD SUC 40 MG/1 ML VIAL IV SCH ×3 (09:35→23:32)
[2022-01-17] MEDS ORDERED: EPOETIN ALFA-EPBX 3,000 UNIT/ML VIAL IV PRN (12:50)
[2022-01-17] MEDS ORDERED: MORPHINE 4 MG/1 ML VIAL IV PRN (12:55)
[2022-01-17] MEDS: PANTOPRAZOLE 40 MG VIAL IV SCH (16:15)
[2022-01-17] MEDS: TICAGRELOR 90 MG TABLET PO SCH (21:00)
[2022-01-18 03:45] LABS: Hematocrit 25.3 VOL% (42.0-52.0); Hemoglobin 7.9 GM/DL (14.0-18.0); Immature Granulocytes % 0.7 %; Immature Granulocytes Absolute 0.05 #; Lymphocytes # 0.5 10*3/uL (1.4-4.0); Lymphocytes % 7.4 % (21.2-54.2); Mean Corpuscular HGB Conc 31.2 GM/DL (32-36); Mean Corpuscular Volume 84.9 FL (87-102); Mean Platelet Volume 9.9 FL (9.6-12.0); Monocytes % 1.7 % (1.7-12.7); Neutrophils % 90.2 % (38.7-73.9); Platelet Count 159 T/CUMM (130-400); Red Blood Count 2.98 MC/CUMM (3.8-5.5); Red Cell Distribution Width 18.3 % (9.3-17.3)
[2022-01-18 04:01] LABS: Calcium 8.2 MG/DL (8.5-10.1); Osmolality,Calculated 289.1 MOS/KG (273-304); Potassium 3.5 MMOL/L (3.5-5.1)
[2022-01-18 04:15] LABS: ABG Base Excess 0.7 MMOL/L (-2.5-2.5); ABG HCO3 25.1 MMOL/L (20-26); ABG Oxygen Saturation 98.9 % (95-100); ABG PCO2 38.4 MM HG (35-48); ABG PH 7.423 (7.35-7.45); ABG TCO2 23.1 MMOL/L (23-27); Allen Test Positive; Pt O2 Delivery Device Ventilator
[2022-01-18 04:18] LABS: Band Neutrophils 1 % (0-10); Hypochromia 1+; Lymphocytes 2 % (20-55); Microcytosis 1+; Platelet Estimate Adequate; Segmented Neutrophils 97 % (50-85); Total Cells Counted 100
[2022-01-18] MEDS ORDERED: POTASSIUM CHLORIDE 20 MEQ TABLET PO ONE (07:51)
[2022-01-18] MEDS ORDERED: MAGNESIUM SULF RIDER 2 GM/50 ML PREMIX IV ONE (07:52)
[2022-01-18] MEDS: ROSUVASTATIN 20 MG TABLET PO SCH (09:10)
[2022-01-18] MEDS: FERROUS SULFATE 325 MG TABLET PO SCH ×2 (09:11→20:15)
[2022-01-18] MEDS: METOPROLOL TARTRATE 25 MG TABLET PO SCH ×2 (09:11→20:15)
[2022-01-18] MEDS: TICAGRELOR 90 MG TABLET PO SCH ×2 (09:11→20:15)
[2022-01-18] MEDS: ASPIRIN EC 81 MG TABLET PO SCH (09:11)
[2022-01-18] MEDS: methylPREDNISolone SOD SUC 40 MG/1 ML VIAL IV SCH ×2 (09:12→15:40)
[2022-01-18] MEDS: MIDAZOLAM 100 MG in SODIUM CHLORIDE 0.9% 80 ML IV PRN (09:12)
[2022-01-18] MEDS ORDERED: DEXTROSE 10% 250 ML BAG IV PRN (09:53)
[2022-01-18] MEDS ORDERED: GLUCAGON 1 MG VIAL IM PRN (09:53)
[2022-01-18] MEDS ORDERED: HEPARIN 10,000 UNIT/10 ML VIAL IV SCH (11:00)
[2022-01-18] MEDS: INSULIN REGULAR 100 UNIT/ML SUBCUT SCH ×2 (12:18→17:38)
[2022-01-18] MEDS ORDERED: POTASSIUM CHLORIDE 20 MEQ TABLET PO PRN (14:49)
[2022-01-18] MEDS: PANTOPRAZOLE 40 MG VIAL IV SCH (15:41)
[2022-01-18] MEDS ORDERED: LEVOFLOXACIN INJ 750 MG/150 ML PREMIX IV SCH (18:00)
[2022-01-18] MEDS ORDERED: LEVOFLOXACIN INJ 500 MG/100 ML PREMIX IV SCH (18:00)
[2022-01-18] MEDS: INSULIN GLARGINE 100 UNIT/ML SUBCUT SCH (20:14)
[2022-01-18] MEDS: MINERAL OIL/PETROLATUM OPH OINT 3.5 GM TUBE BOTH EYES SCH (20:15)
[2022-01-19] MEDS: methylPREDNISolone SOD SUC 40 MG/1 ML VIAL IV SCH ×4 (00:40→23:53)
[2022-01-19] MEDS: INSULIN REGULAR 100 UNIT/ML SUBCUT SCH ×5 (00:40→23:53)
[2022-01-19] MEDS: DOPamine 800 MG/250 ML PREMIX IV PRN (00:44)
[2022-01-19 04:16] LABS: Hemoglobin 7.7 GM/DL (14.0-18.0); Immature Granulocytes % 0.5 %; Immature Granulocytes Absolute 0.03 #; Lymphocytes # 0.4 10*3/uL (1.4-4.0); Lymphocytes % 6.5 % (21.2-54.2); Mean Corpuscular HGB Conc 32.1 GM/DL (32-36); Mean Corpuscular Volume 84.8 FL (87-102); Mean Platelet Volume 9.6 FL (9.6-12.0); Monocytes % 4.4 % (1.7-12.7); Neutrophils % 88.6 % (38.7-73.9); Platelet Count 148 T/CUMM (130-400); Red Blood Count 2.83 MC/CUMM (3.8-5.5); Red Cell Distribution Width 18.6 % (9.3-17.3); White Blood Count 6.2 T/CUMM (4-12)
[2022-01-19 04:36] LABS: Calcium 7.7 MG/DL (8.5-10.1); Osmolality,Calculated 294.5 MOS/KG (273-304); Potassium 3.1 MMOL/L (3.5-5.1)
[2022-01-19] MEDS ORDERED: POTASSIUM CHLORIDE RIDER 20 MEQ/100 ML PREMIX IV ONE (04:47)
[2022-01-19 04:53] LABS: ABG Base Excess 2.7 MMOL/L (-2.5-2.5); ABG HCO3 26.9 MMOL/L (20-26); ABG Oxygen Saturation 99.4 % (95-100); ABG PCO2 38.3 MM HG (35-48); ABG PH 7.452 (7.35-7.45); ABG TCO2 24.9 MMOL/L (23-27)
[2022-01-19] MEDS: POTASSIUM CHLORIDE RIDER 20 MEQ/100 ML PREMIX IV PRN ×2 (04:53→06:44)
[2022-01-19] MEDS ORDERED: SODIUM CHLORIDE 0.9% 1,000 ML IV PRN (08:13)
[2022-01-19] MEDS: TICAGRELOR 90 MG TABLET PO SCH ×2 (09:00→20:13)
[2022-01-19] MEDS: METOPROLOL TARTRATE 25 MG TABLET PO SCH ×2 (09:00→20:13)
[2022-01-19] MEDS: FERROUS SULFATE 325 MG TABLET PO SCH ×2 (09:00→20:13)
[2022-01-19] MEDS: ROSUVASTATIN 20 MG TABLET PO SCH (09:00)
[2022-01-19] MEDS: ASPIRIN EC 81 MG TABLET PO SCH (09:00)
[2022-01-19] MEDS: POLYETHYLENE GLYCOL POWDER 17 GM PACK PO SCH (11:48)
[2022-01-19] MEDS: PANTOPRAZOLE 40 MG VIAL IV SCH (15:51)
[2022-01-19] MEDS: INSULIN GLARGINE 100 UNIT/ML SUBCUT SCH (20:08)
[2022-01-19] MEDS: MINERAL OIL/PETROLATUM OPH OINT 3.5 GM TUBE BOTH EYES SCH (20:13)
[2022-01-19 22:32] LABS: Bacteria,Urine Occasional /HPF (Few); Bilirubin,Urine Negative (Negative); Blood, Urine Moderate mg/dL (Negative); Glucose,Urine (UA) 150 mg/dL (Negative); Granular Casts,Urine 23 /LPF (0-1); Hyaline Casts,Urine 24 /LPF (0-3); Ketones,Urine Negative (Negative); Mucus,Urine Occasional /LPF (Occasional); Nitrite,Urine Negative (Negative); Protein,Urine >=500 MG/DL; RBC,Urine 37 /HPF (0-4); Squamous Epithelial Cell,Urine Occasional /HPF (0-10); Urine Appearance CLOUDY (Clear); Urine Color Yellow (Yellow); Urine Specific Gravity 1.019 (1.001-1.035); Urine Urobilinogen < 2.0 EU/DL (<2.0)
[2022-01-20] MEDS: MIDAZOLAM 100 MG in SODIUM CHLORIDE 0.9% 80 ML IV PRN (02:35)
[2022-01-20] MEDS: ONDANSETRON 4 MG/2 ML VIAL IV PRN ×2 (02:40→09:26)
[2022-01-20 03:55] LABS: ABG Base Excess 0.7 MMOL/L (-2.5-2.5); ABG HCO3 25.1 MMOL/L (20-26); ABG Oxygen Saturation 99.3 % (95-100); ABG PCO2 38.3 MM HG (35-48); ABG PH 7.424 (7.35-7.45); ABG TCO2 22.8 MMOL/L (23-27)
[2022-01-20 04:03] LABS: Calcium 7.9 MG/DL (8.5-10.1); Osmolality,Calculated 301.4 MOS/KG (273-304); Potassium 3.7 MMOL/L (3.5-5.1)
[2022-01-20 04:10] LABS: Basophils % 0.2 % (0.0-0.8); Hematocrit 28.8 VOL% (42.0-52.0); Immature Granulocytes % 0.9 %; Immature Granulocytes Absolute 0.06 #; Lymphocytes # 0.2 10*3/uL (1.4-4.0); Lymphocytes % 2.9 % (21.2-54.2); Mean Corpuscular HGB Conc 32.3 GM/DL (32-36); Mean Platelet Volume 9.7 FL (9.6-12.0); Monocytes % 3.7 % (1.7-12.7); Neutrophils % 92.3 % (38.7-73.9); Platelet Count 124 T/CUMM (130-400); White Blood Count 6.6 T/CUMM (4-12)
[2022-01-20 04:13] LABS: Hemoglobin 9.3 GM/DL (14.0-18.0); Red Blood Count 3.43 MC/CUMM (3.8-5.5)
[2022-01-20 04:31] LABS: Band Neutrophils 1 % (0-10); Hypochromia 1+; Lymphocytes 1 % (20-55); Microcytosis 1+; Ovalocytes Few; Segmented Neutrophils 95 % (50-85); Total Cells Counted 100
[2022-01-20 04:32] LABS: Platelet Estimate Adequate
[2022-01-20] MEDS: POTASSIUM CHLORIDE RIDER 20 MEQ/100 ML PREMIX IV PRN (05:34)
[2022-01-20] MEDS: INSULIN REGULAR 100 UNIT/ML SUBCUT SCH ×4 (05:49→23:38)
[2022-01-20] MEDS: methylPREDNISolone SOD SUC 40 MG/1 ML VIAL IV SCH ×2 (09:26→15:37)
[2022-01-20] MEDS: ASPIRIN EC 81 MG TABLET PO SCH (09:27)
[2022-01-20] MEDS: METOPROLOL TARTRATE 25 MG TABLET PO SCH (09:27)
[2022-01-20] MEDS: FERROUS SULFATE 325 MG TABLET PO SCH ×2 (09:27→21:18)
[2022-01-20] MEDS: POLYETHYLENE GLYCOL POWDER 17 GM PACK PO SCH (09:27)
[2022-01-20] MEDS: ROSUVASTATIN 20 MG TABLET PO SCH (09:27)
[2022-01-20] MEDS: TICAGRELOR 90 MG TABLET PO SCH ×2 (09:27→21:18)
[2022-01-20] MEDS ORDERED: POTASSIUM CHLORIDE 20 MEQ TABLET PO ONE (10:42)
[2022-01-20] MEDS ORDERED: VANCOMYCIN INJ 1,500 MG in SODIUM CHLORIDE 0.9% 500 ML IV ONE (12:00)
[2022-01-20] MEDS: ALBUTEROL 2 MG TABLET PO SCH ×2 (13:08→21:18)
[2022-01-20] MEDS: PANTOPRAZOLE 40 MG VIAL IV SCH (15:37)
[2022-01-20] MEDS: DOPamine 800 MG/250 ML PREMIX IV PRN (17:23)
[2022-01-20] MEDS: MINERAL OIL/PETROLATUM OPH OINT 3.5 GM TUBE BOTH EYES SCH (21:03)
[2022-01-20] MEDS: INSULIN GLARGINE 100 UNIT/ML SUBCUT SCH (21:17)
[2022-01-21] MEDS: methylPREDNISolone SOD SUC 40 MG/1 ML VIAL IV SCH ×3 (00:01→20:15)
[2022-01-21 03:14] LABS: ABG Base Excess 0.1 MMOL/L (-2.5-2.5); ABG HCO3 24.5 MMOL/L (20-26); ABG PCO2 38.2 MM HG (35-48); ABG PH 7.414 (7.35-7.45); ABG TCO2 22.2 MMOL/L (23-27)
[2022-01-21 04:51] LABS: Basophils % 0.1 % (0.0-0.8); Hematocrit 28.4 VOL% (42.0-52.0); Hemoglobin 9.3 GM/DL (14.0-18.0); Immature Granulocytes % 0.6 %; Immature Granulocytes Absolute 0.06 #; Lymphocytes # 0.2 10*3/uL (1.4-4.0); Lymphocytes % 1.9 % (21.2-54.2); Mean Corpuscular HGB Conc 32.7 GM/DL (32-36); Mean Corpuscular Volume 84.3 FL (87-102); Mean Platelet Volume 10.4 FL (9.6-12.0); Monocytes % 5.6 % (1.7-12.7); Neutrophils % 91.8 % (38.7-73.9); Platelet Count 113 T/CUMM (130-400); Red Blood Count 3.37 MC/CUMM (3.8-5.5); Red Cell Distribution Width 18.6 % (9.3-17.3); White Blood Count 9.4 T/CUMM (4-12)
[2022-01-21 05:13] LABS: Hypochromia 1+; Lymphocytes 3 % (20-55); Microcytosis 1+; Platelet Estimate Decreased; Segmented Neutrophils 93 % (50-85); Total Cells Counted 100
[2022-01-21 05:35] LABS: Osmolality,Calculated 310.3 MOS/KG (273-304); Potassium 4.3 MMOL/L (3.5-5.1)
[2022-01-21] MEDS: INSULIN REGULAR 100 UNIT/ML SUBCUT SCH ×5 (05:52→23:57)
[2022-01-21] MEDS: ALBUTEROL 2 MG TABLET PO SCH ×3 (05:52→22:22)
[2022-01-21] MEDS: ROSUVASTATIN 20 MG TABLET PO SCH (08:37)
[2022-01-21] MEDS: POLYETHYLENE GLYCOL POWDER 17 GM PACK PO SCH (08:37)
[2022-01-21] MEDS: ASPIRIN EC 81 MG TABLET PO SCH (08:37)
[2022-01-21] MEDS: FERROUS SULFATE 325 MG TABLET PO SCH ×2 (08:37→20:16)
[2022-01-21] MEDS: TICAGRELOR 90 MG TABLET PO SCH ×2 (08:37→21:09)
[2022-01-21] MEDS ORDERED: INSULIN REGULAR 100 UNIT/ML SUBCUT SCH (09:30)
[2022-01-21] MEDS ORDERED: methylPREDNISolone SOD SUC 40 MG/1 ML VIAL IV SCH (09:30)
[2022-01-21] MEDS: HEPARIN 5,000 UNIT/1 ML VIAL SUBCUT SCH ×2 (10:03→17:40)
[2022-01-21] MEDS: METOCLOPRAMIDE 10 MG/2 ML VIAL IV SCH ×2 (11:39→17:40)
[2022-01-21] MEDS ORDERED: SODIUM CHLORIDE 0.9% 1,000 ML IV ONE (15:07)
[2022-01-21] MEDS: PANTOPRAZOLE 40 MG VIAL IV SCH (16:02)
[2022-01-21] MEDS ORDERED: VANCOMYCIN INJ 500 MG in SODIUM CHLORIDE 0.9% 100 ML IV ONE (17:00)
[2022-01-21] MEDS ORDERED: VANCOMYCIN INJ 500 MG in SODIUM CHLORIDE 0.9% 100 ML IV PRN (17:00)
[2022-01-21] MEDS: DOPamine 800 MG/250 ML PREMIX IV PRN (18:25)
[2022-01-21] MEDS: MINERAL OIL/PETROLATUM OPH OINT 3.5 GM TUBE BOTH EYES SCH (21:09)
[2022-01-21] MEDS: INSULIN GLARGINE 100 UNIT/ML SUBCUT SCH (21:14)
[2022-01-22] MEDS: METOCLOPRAMIDE 10 MG/2 ML VIAL IV SCH ×5 (01:02→20:52)
[2022-01-22] MEDS: HEPARIN 5,000 UNIT/1 ML VIAL SUBCUT SCH ×3 (01:33→17:14)
[2022-01-22 03:12] LABS: Basophils % 0.1 % (0.0-0.8); Hematocrit 28.9 VOL% (42.0-52.0); Hemoglobin 9.1 GM/DL (14.0-18.0); Immature Granulocytes % 1.7 %; Immature Granulocytes Absolute 0.33 #; Lymphocytes # 0.6 10*3/uL (1.4-4.0); Lymphocytes % 3.2 % (21.2-54.2); Mean Corpuscular HGB Conc 31.5 GM/DL (32-36); Mean Corpuscular Volume 85.5 FL (87-102); Mean Platelet Volume 10.6 FL (9.6-12.0); Monocytes % 7.1 % (1.7-12.7); Neutrophils % 87.9 % (38.7-73.9); Platelet Count 152 T/CUMM (130-400); Red Blood Count 3.38 MC/CUMM (3.8-5.5); Red Cell Distribution Width 19.6 % (9.3-17.3); White Blood Count 19.5 T/CUMM (4-12)
[2022-01-22 03:27] LABS: Albumin 1.3 G/DL (3.4-5.0); Bilirubin,Total 3.2 MG/DL (0.20-1.00); Calcium 7.7 MG/DL (8.5-10.1); Osmolality,Calculated 289.4 MOS/KG (273-304); Potassium 4.5 MMOL/L (3.5-5.1); Total Protein 5.5 G/DL (6.4-8.2)
[2022-01-22 03:45] LABS: Hypochromia 1+; Lymphocytes 4 % (20-55); Microcytosis 1+; Platelet Estimate Adequate; Segmented Neutrophils 90 % (50-85); Total Cells Counted 100
[2022-01-22 03:56] LABS: Calcium 8.3 MG/DL (8.5-10.1); Osmolality,Calculated 286.7 MOS/KG (273-304); Potassium 4.4 MMOL/L (3.5-5.1)
[2022-01-22] MEDS: DOPamine 800 MG/250 ML PREMIX IV PRN (04:00)
[2022-01-22] MEDS: INSULIN REGULAR 100 UNIT/ML SUBCUT SCH ×4 (04:26→18:02)
[2022-01-22 04:52] LABS: ABG Base Excess 2.2 MMOL/L (-2.5-2.5); ABG HCO3 26.4 MMOL/L (20-26); ABG Oxygen Saturation 98.4 % (95-100); ABG PH 7.465 (7.35-7.45); ABG PO2 99.3 MM HG (80-95); ABG TCO2 23.6 MMOL/L (23-27); Allen Test Positive; Pt O2 Delivery Device Ventilator
[2022-01-22] MEDS: ROSUVASTATIN 20 MG TABLET PO SCH (09:21)
[2022-01-22] MEDS: POLYETHYLENE GLYCOL POWDER 17 GM PACK PO SCH (09:21)
[2022-01-22] MEDS: FERROUS SULFATE 325 MG TABLET PO SCH ×2 (09:21→20:51)
[2022-01-22] MEDS: ALBUTEROL 2 MG TABLET PO SCH (09:21)
[2022-01-22] MEDS: TICAGRELOR 90 MG TABLET PO SCH ×2 (09:21→20:51)
[2022-01-22] MEDS: ASPIRIN EC 81 MG TABLET PO SCH (09:21)
[2022-01-22] MEDS: methylPREDNISolone SOD SUC 40 MG/1 ML VIAL IV SCH ×2 (09:24→20:52)
[2022-01-22] MEDS ORDERED: DEXMEDETOMIDINE 200 MCG in SODIUM CHLORIDE 0.9% 48 ML IV PRN (10:00)
[2022-01-22] MEDS: NOREPINEPHRINE 8 MG in SODIUM CHLORIDE 0.9% 242 ML IV PRN ×3 (10:27→20:30)
[2022-01-22] MEDS: ALBUTEROL/IPRATROPIUM 3 ML NEB RESP TX SCH ×2 (13:00→19:40)
[2022-01-22] MEDS ORDERED: SODIUM CHLORIDE 0.9% 500 ML IV ONE (15:48)
[2022-01-22] MEDS: PANTOPRAZOLE 40 MG VIAL IV SCH (16:00)
[2022-01-22] MEDS: INSULIN GLARGINE 100 UNIT/ML SUBCUT SCH (20:51)
[2022-01-22] MEDS: MINERAL OIL/PETROLATUM OPH OINT 3.5 GM TUBE BOTH EYES SCH (20:52)
[2022-01-23] MEDS: ALBUTEROL/IPRATROPIUM 3 ML NEB RESP TX SCH ×4 (00:11→19:22)
[2022-01-23] MEDS: INSULIN REGULAR 100 UNIT/ML SUBCUT SCH ×4 (00:36→17:41)
[2022-01-23] MEDS ORDERED: ACETAMINOPHEN 325 MG TABLET PO PRN (00:49)
[2022-01-23 00:54] LABS: Calcium 7.5 MG/DL (8.5-10.1); Osmolality,Calculated 300.1 MOS/KG (273-304); Potassium 5.2 MMOL/L (3.5-5.1)
[2022-01-23] MEDS: NOREPINEPHRINE 8 MG in SODIUM CHLORIDE 0.9% 242 ML IV PRN ×2 (01:06→13:02)
[2022-01-23] MEDS: HEPARIN 5,000 UNIT/1 ML VIAL SUBCUT SCH ×4 (02:06→23:18)
[2022-01-23] MEDS: METOCLOPRAMIDE 10 MG/2 ML VIAL IV SCH ×4 (03:30→20:32)
[2022-01-23 04:06] LABS: ABG Base Excess -1.6 MMOL/L (-2.5-2.5); ABG HCO3 22.4 MMOL/L (20-26); ABG Oxygen Saturation 97.7 % (95-100); ABG PCO2 34.6 MM HG (35-48); ABG PO2 107.7 MM HG (80-95); ABG TCO2 23.5 MMOL/L (23-27)
[2022-01-23 04:14] LABS: Basophils % 0.1 % (0.0-0.8); Hemoglobin 7.3 GM/DL (14.0-18.0); Immature Granulocytes % 3.5 %; Immature Granulocytes Absolute 0.52 #; Lymphocytes # 0.4 10*3/uL (1.4-4.0); Lymphocytes % 2.4 % (21.2-54.2); Mean Corpuscular HGB Conc 31.7 GM/DL (32-36); Mean Corpuscular Volume 87.1 FL (87-102); Mean Platelet Volume 10.2 FL (9.6-12.0); Platelet Count 146 T/CUMM (130-400); Red Blood Count 2.64 MC/CUMM (3.8-5.5); Red Cell Distribution Width 20.4 % (9.3-17.3); White Blood Count 15.1 T/CUMM (4-12)
[2022-01-23 04:38] LABS: Hypochromia 1+; Lymphocytes 2 % (20-55); Microcytosis 1+; Platelet Estimate Adequate; Segmented Neutrophils 91 % (50-85); Total Cells Counted 100
[2022-01-23 04:47] LABS: Calcium 7.2 MG/DL (8.5-10.1); Osmolality,Calculated 302.8 MOS/KG (273-304); Potassium 5.1 MMOL/L (3.5-5.1)
[2022-01-23 05:53] LABS: Albumin 1.1 G/DL (3.4-5.0); Bilirubin,Total 3.7 MG/DL (0.20-1.00); Calcium 7.4 MG/DL (8.5-10.1); Osmolality,Calculated 297.2 MOS/KG (273-304); Total Protein 5.2 G/DL (6.4-8.2)
[2022-01-23] MEDS: ASPIRIN EC 81 MG TABLET PO SCH (08:31)
[2022-01-23] MEDS: POLYETHYLENE GLYCOL POWDER 17 GM PACK PO SCH (08:31)
[2022-01-23] MEDS: TICAGRELOR 90 MG TABLET PO SCH ×3 (08:31→20:46)
[2022-01-23] MEDS: methylPREDNISolone SOD SUC 40 MG/1 ML VIAL IV SCH ×3 (08:32→20:30)
[2022-01-23] MEDS: FERROUS SULFATE 325 MG TABLET PO SCH ×3 (08:32→20:46)
[2022-01-23] MEDS: ZINC OXIDE PASTE 113 GM TUBE TOP SCH ×2 (14:54→20:35)
[2022-01-23] MEDS ORDERED: VANCOMYCIN INJ 500 MG in SODIUM CHLORIDE 0.9% 100 ML IV ONE (17:00)
[2022-01-23 17:07] LABS: ABG Base Excess 2.7 MMOL/L (-2.5-2.5); ABG HCO3 26.8 MMOL/L (20-26); ABG Oxygen Saturation 92.3 % (95-100); ABG PCO2 38.7 MM HG (35-48); ABG PH 7.449 (7.35-7.45); ABG PO2 65.3 MM HG (80-95); ABG TCO2 24.7 MMOL/L (23-27)
[2022-01-23] MEDS: PANTOPRAZOLE 40 MG VIAL IV SCH (17:41)
[2022-01-23] MEDS: INSULIN GLARGINE 100 UNIT/ML SUBCUT SCH (20:33)
[2022-01-23] MEDS: MINERAL OIL/PETROLATUM OPH OINT 3.5 GM TUBE BOTH EYES SCH (21:06)
[2022-01-24] MEDS: ALBUTEROL/IPRATROPIUM 3 ML NEB RESP TX SCH ×4 (00:37→19:25)
[2022-01-24] MEDS: INSULIN REGULAR 100 UNIT/ML SUBCUT SCH ×4 (01:26→17:29)
[2022-01-24] MEDS: METOCLOPRAMIDE 10 MG/2 ML VIAL IV SCH ×2 (02:24→08:39)
[2022-01-24 04:17] LABS: ABG Base Excess 2.4 MMOL/L (-2.5-2.5); ABG HCO3 26.6 MMOL/L (20-26); ABG Oxygen Saturation 99.9 % (95-100); ABG PCO2 37.6 MM HG (35-48); ABG PH 7.453 (7.35-7.45)
[2022-01-24 04:23] LABS: Basophils % 0.1 % (0.0-0.8); Hematocrit 41.6 VOL% (42.0-52.0); Hemoglobin 13.7 GM/DL (14.0-18.0); Immature Granulocytes % 1.3 %; Immature Granulocytes Absolute 0.09 #; Lymphocytes # 0.2 10*3/uL (1.4-4.0); Mean Corpuscular HGB Conc 32.9 GM/DL (32-36); Mean Corpuscular Volume 83.2 FL (87-102); Mean Platelet Volume 10.8 FL (9.6-12.0); Monocytes % 5.1 % (1.7-12.7); Neutrophils % 90.5 % (38.7-73.9); Platelet Count 94 T/CUMM (130-400); Red Cell Distribution Width 19.8 % (9.3-17.3); White Blood Count 7.1 T/CUMM (4-12)
[2022-01-24 04:34] LABS: INR 1.1; PT Patient Result 12.4 SECS (10.5-12.0)
[2022-01-24 04:49] LABS: Band Neutrophils 2 % (0-10); Lymphocytes 2 % (20-55); Segmented Neutrophils 91 % (50-85); Total Cells Counted 100
[2022-01-24 04:50] LABS: Ovalocytes Slight; Platelet Estimate Decreased
[2022-01-24 04:51] LABS: Albumin 1.2 G/DL (3.4-5.0); Bilirubin,Total 5.4 MG/DL (0.20-1.00); Calcium 7.4 MG/DL (8.5-10.1); Osmolality,Calculated 289.5 MOS/KG (273-304); Potassium 4.2 MMOL/L (3.5-5.1); Total Protein 5.5 G/DL (6.4-8.2)
[2022-01-24 06:40] LABS: Hepatitis B Core IgM Quant 0.14 Index; Hepatitis B Surface Ag Quant < 0.10 Index; Hepatitis B Surface Ag Result Non-Reactive (NonReactive); Hepatitis C Virus Ab Quant > 11.00 Index; Hepatitis C Virus Ab Result Reactive (NonReactive)
[2022-01-24 07:54] LABS: Immature Granulocytes % 1.4 %
[2022-01-24 07:59] LABS: Hematocrit 25.9 VOL% (42.0-52.0); Hemoglobin 8.4 GM/DL (14.0-18.0); Immature Granulocytes Absolute 0.16 #; Lymphocytes # 0.3 10*3/uL (1.4-4.0); Lymphocytes % 2.6 % (21.2-54.2); Mean Corpuscular HGB Conc 32.4 GM/DL (32-36); Mean Corpuscular Volume 86.3 FL (87-102); Mean Platelet Volume 10.5 FL (9.6-12.0); Monocytes % 6.2 % (1.7-12.7); Neutrophils % 89.8 % (38.7-73.9); Red Cell Distribution Width 19.3 % (9.3-17.3); White Blood Count 11.6 T/CUMM (4-12)
[2022-01-24 08:00] LABS: Platelet Count 116 T/CUMM (130-400)
[2022-01-24 08:18] LABS: Lymphocytes 4 % (20-55); Nucleated Red Blood Cells 2 (0-5); Platelet Estimate Decreased; Segmented Neutrophils 92 % (50-85); Total Cells Counted 100
[2022-01-24 08:19] LABS: Hypochromia 1+; Microcytosis 1+
[2022-01-24] MEDS: ASPIRIN EC 81 MG TABLET PO SCH ×2 (08:40→12:38)
[2022-01-24] MEDS: HEPARIN 5,000 UNIT/1 ML VIAL SUBCUT SCH (08:40)
[2022-01-24] MEDS: methylPREDNISolone SOD SUC 40 MG/1 ML VIAL IV SCH ×2 (08:40→20:40)
[2022-01-24] MEDS: ZINC OXIDE PASTE 113 GM TUBE TOP SCH ×2 (08:40→20:41)
[2022-01-24] MEDS: FERROUS SULFATE 325 MG TABLET PO SCH ×3 (08:40→20:36)
[2022-01-24] MEDS: POLYETHYLENE GLYCOL POWDER 17 GM PACK PO SCH (08:40)
[2022-01-24] MEDS: TICAGRELOR 90 MG TABLET PO SCH ×3 (08:40→20:37)
[2022-01-24] MEDS ORDERED: FLUCONAZOLE INJ 400 MG/200 ML PREMIX IV SCH (10:00)
[2022-01-24] MEDS ORDERED: CEFEPIME 2,000 MG in SODIUM CHLORIDE 0.9% 100 ML IV SCH (10:00)
[2022-01-24] MEDS: metroNIDAZOLE INJ 500 MG/100 ML PREMIX IV SCH ×2 (11:00→17:54)
[2022-01-24] MEDS: FLUCONAZOLE INJ 200 MG/100 ML PREMIX IV SCH (11:00)
[2022-01-24] MEDS: CEFEPIME 1,000 MG in SODIUM CHLORIDE 0.9% 100 ML IV SCH ×2 (11:00→22:59)
[2022-01-24] MEDS: PANTOPRAZOLE 40 MG VIAL IV SCH (17:53)
[2022-01-24] MEDS: MINERAL OIL/PETROLATUM OPH OINT 3.5 GM TUBE BOTH EYES SCH (20:42)
[2022-01-24] MEDS: INSULIN GLARGINE 100 UNIT/ML SUBCUT SCH (21:47)
[2022-01-24] MEDS: ONDANSETRON 4 MG/2 ML VIAL IV PRN (22:03)
[2022-01-25] MEDS: INSULIN REGULAR 100 UNIT/ML SUBCUT SCH ×4 (00:04→19:01)
[2022-01-25] MEDS: ALBUTEROL/IPRATROPIUM 3 ML NEB RESP TX SCH ×4 (01:09→19:06)
[2022-01-25] MEDS: metroNIDAZOLE INJ 500 MG/100 ML PREMIX IV SCH (02:41)
[2022-01-25 04:02] LABS: ABG Base Excess -0.9 MMOL/L (-2.5-2.5); ABG HCO3 23.6 MMOL/L (20-26); ABG Oxygen Saturation 95.5 % (95-100); ABG PCO2 38.1 MM HG (35-48); ABG PH 7.409 (7.35-7.45); ABG PO2 81.9 MM HG (80-95); ABG TCO2 24.7 MMOL/L (23-27)
[2022-01-25 04:03] LABS: Basophils % 0.1 % (0.0-0.8); Hematocrit 26.4 VOL% (42.0-52.0); Hemoglobin 8.4 GM/DL (14.0-18.0); Immature Granulocytes % 0.7 %; Lymphocytes # 0.2 10*3/uL (1.4-4.0); Lymphocytes % 1.7 % (21.2-54.2); Mean Corpuscular HGB Conc 31.8 GM/DL (32-36); Mean Corpuscular Volume 86.3 FL (87-102); Monocytes % 5.7 % (1.7-12.7); Neutrophils % 91.8 % (38.7-73.9); Platelet Count 122 T/CUMM (130-400); Red Blood Count 3.06 MC/CUMM (3.8-5.5); Red Cell Distribution Width 19.6 % (9.3-17.3); White Blood Count 13.4 T/CUMM (4-12)
[2022-01-25 04:25] LABS: Lymphocytes 3 % (20-55); Platelet Estimate Normal; Segmented Neutrophils 92 % (50-85); Total Cells Counted 100
[2022-01-25 04:26] LABS: Hypochromia 1+; Microcytosis 1+
[2022-01-25 04:49] LABS: Albumin 1.1 G/DL (3.4-5.0); Bilirubin,Total 6.1 MG/DL (0.20-1.00); Calcium 7.3 MG/DL (8.5-10.1); Osmolality,Calculated 295.5 MOS/KG (273-304); Potassium 4.4 MMOL/L (3.5-5.1); Total Protein 5.4 G/DL (6.4-8.2)
[2022-01-25] MEDS: FERROUS SULFATE 325 MG TABLET PO SCH (12:53)
[2022-01-25] MEDS: ZINC OXIDE PASTE 113 GM TUBE TOP SCH ×2 (12:53→20:50)
[2022-01-25] MEDS: ASPIRIN EC 81 MG TABLET PO SCH (12:53)
[2022-01-25] MEDS: POLYETHYLENE GLYCOL POWDER 17 GM PACK PO SCH (12:54)
[2022-01-25] MEDS: methylPREDNISolone SOD SUC 40 MG/1 ML VIAL IV SCH ×2 (16:03→20:32)
[2022-01-25] MEDS: TICAGRELOR 90 MG TABLET PO SCH (16:03)
[2022-01-25 18:14] LABS: ABG Base Excess 2.7 MMOL/L (-2.5-2.5); ABG HCO3 26.9 MMOL/L (20-26); ABG Oxygen Saturation 98.4 % (95-100); ABG PCO2 38.9 MM HG (35-48); ABG PH 7.447 (7.35-7.45); ABG TCO2 24.7 MMOL/L (23-27); Allen Test Positive; Pt O2 Delivery Device BIPAP
[2022-01-25] MEDS: PANTOPRAZOLE 40 MG VIAL IV SCH (19:00)
[2022-01-25] MEDS: FLUCONAZOLE INJ 200 MG/100 ML PREMIX IV SCH (19:00)
[2022-01-25 19:53] LABS: Calcium 7.8 MG/DL (8.5-10.1); Osmolality,Calculated 278.8 MOS/KG (273-304); Potassium 4.1 MMOL/L (3.5-5.1)
[2022-01-25] MEDS ORDERED: VANCOMYCIN INJ 500 MG in SODIUM CHLORIDE 0.9% 100 ML IV ONE (21:00)
[2022-01-26] MEDS: TICAGRELOR 90 MG TABLET PO SCH ×3 (00:19→20:11)
[2022-01-26] MEDS: FERROUS SULFATE 325 MG TABLET PO SCH ×3 (00:20→20:11)
[2022-01-26] MEDS: INSULIN GLARGINE 100 UNIT/ML SUBCUT SCH (00:20)
[2022-01-26] MEDS: ALBUTEROL/IPRATROPIUM 3 ML NEB RESP TX SCH ×4 (00:50→19:51)
[2022-01-26] MEDS: INSULIN REGULAR 100 UNIT/ML SUBCUT SCH ×5 (01:05→23:32)
[2022-01-26 04:45] LABS: ABG Base Excess 1.6 MMOL/L (-2.5-2.5); ABG HCO3 25.9 MMOL/L (20-26); ABG Oxygen Saturation 99.3 % (95-100); ABG PCO2 40.9 MM HG (35-48); ABG PH 7.415 (7.35-7.45); ABG TCO2 23.3 MMOL/L (23-27)
[2022-01-26 05:16] LABS: Basophils % 0.1 % (0.0-0.8); Hematocrit 25.6 VOL% (42.0-52.0); Hemoglobin 8.5 GM/DL (14.0-18.0); Immature Granulocytes % 1.2 %; Immature Granulocytes Absolute 0.22 #; Lymphocytes # 0.3 10*3/uL (1.4-4.0); Lymphocytes % 1.6 % (21.2-54.2); Mean Corpuscular HGB Conc 33.2 GM/DL (32-36); Mean Corpuscular Volume 84.8 FL (87-102); Mean Platelet Volume 10.5 FL (9.6-12.0); Monocytes % 4.5 % (1.7-12.7); Neutrophils % 92.6 % (38.7-73.9); Platelet Count 124 T/CUMM (130-400); Red Blood Count 3.02 MC/CUMM (3.8-5.5); Red Cell Distribution Width 19.4 % (9.3-17.3); White Blood Count 18.5 T/CUMM (4-12)
[2022-01-26 05:49] LABS: Calcium 7.3 MG/DL (8.5-10.1); Osmolality,Calculated 282.7 MOS/KG (273-304); Potassium 4.3 MMOL/L (3.5-5.1)
[2022-01-26 05:59] LABS: Albumin 1.1 G/DL (3.4-5.0); Bilirubin,Total 6.8 MG/DL (0.20-1.00); Calcium 7.5 MG/DL (8.5-10.1); Potassium 4.3 MMOL/L (3.5-5.1); Total Protein 5.4 G/DL (6.4-8.2)
[2022-01-26 06:16] LABS: Band Neutrophils 1 % (0-10); Lymphocytes 3 % (20-55); Platelet Estimate Normal; Segmented Neutrophils 91 % (50-85); Total Cells Counted 100
[2022-01-26 06:17] LABS: Hypochromia Slight; Microcytosis Slight
[2022-01-26 06:32] LABS: INR 1.5; PT Patient Result 16.1 SECS (10.5-12.0)
[2022-01-26] MEDS: NOREPINEPHRINE 8 MG in SODIUM CHLORIDE 0.9% 242 ML IV PRN (07:45)
[2022-01-26] MEDS ORDERED: SODIUM CHLORIDE 0.9% 1,000 ML IV SCH (09:00)
[2022-01-26] MEDS: ZINC OXIDE PASTE 113 GM TUBE TOP SCH ×2 (09:15→20:12)
[2022-01-26] MEDS: methylPREDNISolone SOD SUC 40 MG/1 ML VIAL IV SCH ×2 (09:15→20:11)
[2022-01-26] MEDS: FLUCONAZOLE INJ 200 MG/100 ML PREMIX IV SCH (11:17)
[2022-01-26] MEDS: cefTRIAXone 1,000 MG in SODIUM CHLORIDE 0.9% 100 ML IV SCH (11:17)
[2022-01-26] MEDS: ASPIRIN EC 81 MG TABLET PO SCH (11:41)
[2022-01-26] MEDS: POLYETHYLENE GLYCOL POWDER 17 GM PACK PO SCH (11:41)
[2022-01-26] MEDS: LACTULOSE 20 GM/30 ML UDCUP PO SCH ×2 (15:32→20:11)
[2022-01-26] MEDS: PANTOPRAZOLE 40 MG VIAL IV SCH (15:32)
[2022-01-27] MEDS: ALBUTEROL/IPRATROPIUM 3 ML NEB RESP TX SCH ×4 (00:35→19:40)
[2022-01-27 04:40] LABS: Basophils % 0.2 % (0.0-0.8); Hemoglobin 9.2 GM/DL (14.0-18.0); Immature Granulocytes % 1.6 %; Immature Granulocytes Absolute 0.43 #; Lymphocytes # 0.3 10*3/uL (1.4-4.0); Mean Corpuscular HGB Conc 32.9 GM/DL (32-36); Mean Corpuscular Volume 85.6 FL (87-102); Mean Platelet Volume 10.7 FL (9.6-12.0); Monocytes % 3.5 % (1.7-12.7); NRBC # 0.03 10*3/uL; Neutrophils % 93.7 % (38.7-73.9); Platelet Count 153 T/CUMM (130-400); Red Blood Count 3.27 MC/CUMM (3.8-5.5); White Blood Count 26.2 T/CUMM (4-12)
[2022-01-27] MEDS: NOREPINEPHRINE 8 MG in SODIUM CHLORIDE 0.9% 242 ML IV PRN ×2 (04:45→20:58)
[2022-01-27 04:47] LABS: ABG Base Excess -1.8 MMOL/L (-2.5-2.5); ABG HCO3 22.9 MMOL/L (20-26); ABG Oxygen Saturation 99.1 % (95-100); ABG PCO2 39.5 MM HG (35-48); ABG PH 7.376 (7.35-7.45)
[2022-01-27 05:14] LABS: PT Patient Result 21.8 SECS (10.5-12.0)
[2022-01-27 05:24] LABS: Hypochromia 1+; Lymphocytes 2 % (20-55); Microcytosis 1+; Platelet Estimate Adequate; Segmented Neutrophils 95 % (50-85); Total Cells Counted 100
[2022-01-27 05:35] LABS: Calcium 7.6 MG/DL (8.5-10.1); Osmolality,Calculated 287.1 MOS/KG (273-304); Potassium 4.8 MMOL/L (3.5-5.1)
[2022-01-27 05:38] LABS: Albumin 1.1 G/DL (3.4-5.0); Bilirubin,Total 7.4 MG/DL (0.20-1.00); Calcium 7.3 MG/DL (8.5-10.1); Osmolality,Calculated 288.1 MOS/KG (273-304); Potassium 4.8 MMOL/L (3.5-5.1); Total Protein 5.2 G/DL (6.4-8.2)
[2022-01-27] MEDS: INSULIN REGULAR 100 UNIT/ML SUBCUT SCH ×3 (06:51→18:12)
[2022-01-27] MEDS ORDERED: SODIUM CHLORIDE 0.9% 250 ML IV ONE (07:54)
[2022-01-27] MEDS: POLYETHYLENE GLYCOL POWDER 17 GM PACK PO SCH (09:07)
[2022-01-27] MEDS: TICAGRELOR 90 MG TABLET PO SCH ×2 (09:08→20:32)
[2022-01-27] MEDS: LACTULOSE 20 GM/30 ML UDCUP PO SCH (09:08)
[2022-01-27] MEDS: FERROUS SULFATE 325 MG TABLET PO SCH ×2 (09:08→20:33)
[2022-01-27] MEDS: ASPIRIN EC 81 MG TABLET PO SCH (09:08)
[2022-01-27] MEDS: ZINC OXIDE PASTE 113 GM TUBE TOP SCH ×2 (09:08→20:33)
[2022-01-27] MEDS: methylPREDNISolone SOD SUC 40 MG/1 ML VIAL IV SCH ×2 (09:09→20:33)
[2022-01-27] MEDS: cefTRIAXone 1,000 MG in SODIUM CHLORIDE 0.9% 100 ML IV SCH (10:37)
[2022-01-27] MEDS: FLUCONAZOLE INJ 200 MG/100 ML PREMIX IV SCH (11:31)
[2022-01-27 12:51] LABS: Hematocrit 25.9 VOL% (42.0-52.0); Hemoglobin 8.3 GM/DL (14.0-18.0)
[2022-01-27] MEDS ORDERED: SODIUM CHLORIDE 0.9% 1,000 ML IV PRN (12:54)
[2022-01-27] MEDS: PANTOPRAZOLE 40 MG VIAL IV SCH (16:27)
[2022-01-28] MEDS: INSULIN REGULAR 100 UNIT/ML SUBCUT SCH ×4 (01:10→18:23)
[2022-01-28] MEDS: ALBUTEROL/IPRATROPIUM 3 ML NEB RESP TX SCH ×4 (01:25→19:16)
[2022-01-28 03:33] LABS: ABG Base Excess -0.7 MMOL/L (-2.5-2.5); ABG HCO3 23.8 MMOL/L (20-26); ABG Oxygen Saturation 98.3 % (95-100); ABG PCO2 37.9 MM HG (35-48); ABG PH 7.404 (7.35-7.45); ABG TCO2 21.1 MMOL/L (23-27)
[2022-01-28 05:50] LABS: Basophils % 0.1 % (0.0-0.8); Hematocrit 23.8 VOL% (42.0-52.0); Hemoglobin 7.5 GM/DL (14.0-18.0); Immature Granulocytes % 2.4 %; Immature Granulocytes Absolute 0.59 #; Lymphocytes # 0.2 10*3/uL (1.4-4.0); Lymphocytes % 0.9 % (21.2-54.2); Mean Corpuscular HGB Conc 31.5 GM/DL (32-36); Mean Corpuscular Volume 87.2 FL (87-102); Mean Platelet Volume 11.5 FL (9.6-12.0); NRBC # 0.02 10*3/uL; Neutrophils % 91.6 % (38.7-73.9); Platelet Count 160 T/CUMM (130-400); Red Blood Count 2.73 MC/CUMM (3.8-5.5); Red Cell Distribution Width 20.8 % (9.3-17.3); White Blood Count 24.5 T/CUMM (4-12)
[2022-01-28 05:56] LABS: PT Patient Result 21.7 SECS (10.5-12.0); Partial Thromboplastin Time 48.7 SECS (23.8-32.1)
[2022-01-28 06:22] LABS: Band Neutrophils 1 % (0-10); Hypochromia 1+; Lymphocytes 1 % (20-55); Segmented Neutrophils 94 % (50-85); Total Cells Counted 100
[2022-01-28 06:23] LABS: Microcytosis 1+; Ovalocytes Slight; Platelet Estimate Adequate; Target Cells Slight
[2022-01-28 06:39] LABS: Albumin 1.3 G/DL (3.4-5.0); Bilirubin,Total 8.2 MG/DL (0.20-1.00); Calcium 7.7 MG/DL (8.5-10.1); Osmolality,Calculated 299.8 MOS/KG (273-304); Potassium 5.3 MMOL/L (3.5-5.1); Total Protein 5.6 G/DL (6.4-8.2)
[2022-01-28] MEDS: NOREPINEPHRINE 8 MG in SODIUM CHLORIDE 0.9% 242 ML IV PRN ×2 (07:34→12:39)
[2022-01-28] MEDS: POLYETHYLENE GLYCOL POWDER 17 GM PACK PO SCH (09:33)
[2022-01-28] MEDS: ASPIRIN EC 81 MG TABLET PO SCH (09:33)
[2022-01-28] MEDS: methylPREDNISolone SOD SUC 40 MG/1 ML VIAL IV SCH ×2 (09:33→21:52)
[2022-01-28] MEDS: ZINC OXIDE PASTE 113 GM TUBE TOP SCH ×2 (09:34→21:52)
[2022-01-28] MEDS: cefTRIAXone 1,000 MG in SODIUM CHLORIDE 0.9% 100 ML IV SCH (09:34)
[2022-01-28] MEDS: TICAGRELOR 90 MG TABLET PO SCH ×2 (09:34→21:51)
[2022-01-28] MEDS: FERROUS SULFATE 325 MG TABLET PO SCH ×2 (09:34→21:51)
[2022-01-28] MEDS: LACTULOSE 20 GM/30 ML UDCUP PO SCH (09:34)
[2022-01-28] MEDS: FLUCONAZOLE INJ 200 MG/100 ML PREMIX IV SCH (11:13)
[2022-01-28] MEDS ORDERED: VANCOMYCIN INJ 500 MG in SODIUM CHLORIDE 0.9% 100 ML IV ONE (17:00)
[2022-01-28] MEDS: PANTOPRAZOLE 40 MG VIAL IV SCH (18:22)
[2022-01-28 18:54] LABS: Hematocrit 27.5 VOL% (42.0-52.0)
[2022-01-29] MEDS: INSULIN REGULAR 100 UNIT/ML SUBCUT SCH ×4 (01:08→18:58)
[2022-01-29] MEDS: ALBUTEROL/IPRATROPIUM 3 ML NEB RESP TX SCH ×4 (01:18→21:32)
[2022-01-29 05:01] LABS: ABG Base Excess 0.5 MMOL/L (-2.5-2.5); ABG HCO3 24.9 MMOL/L (20-26); ABG Oxygen Saturation 91.4 % (95-100); ABG PCO2 38.9 MM HG (35-48); ABG PH 7.424 (7.35-7.45); ABG PO2 58.3 MM HG (80-95); ABG TCO2 26.1 MMOL/L (23-27); Allen Test Positive; Pt O2 Delivery Device BIPAP
[2022-01-29 05:15] LABS: Basophils % 0.1 % (0.0-0.8); Hematocrit 26.9 VOL% (42.0-52.0); Hemoglobin 8.6 GM/DL (14.0-18.0); Immature Granulocytes % 1.8 %; Immature Granulocytes Absolute 0.44 #; Lymphocytes # 0.3 10*3/uL (1.4-4.0); Lymphocytes % 1.1 % (21.2-54.2); Mean Corpuscular Volume 85.9 FL (87-102); Mean Platelet Volume 11.3 FL (9.6-12.0); Monocytes % 4.1 % (1.7-12.7); NRBC # 0.03 10*3/uL; Neutrophils % 92.9 % (38.7-73.9); Platelet Count 115 T/CUMM (130-400); Red Blood Count 3.13 MC/CUMM (3.8-5.5); Red Cell Distribution Width 21.2 % (9.3-17.3); White Blood Count 24.1 T/CUMM (4-12)
[2022-01-29 05:42] LABS: Hypochromia 1+; Lymphocytes 1 % (20-55); Microcytosis 1+; Ovalocytes Slight; Platelet Estimate Decreased; Segmented Neutrophils 99 % (50-85); Total Cells Counted 100
[2022-01-29 06:04] LABS: Calcium 7.9 MG/DL (8.5-10.1); Potassium 4.6 MMOL/L (3.5-5.1)
[2022-01-29 09:16] LABS: Albumin 1.3 G/DL (3.4-5.0); Bilirubin,Direct 6.97 MG/DL (0.0-0.20); Bilirubin,Indirect 1.2 MG/DL (0.0-1.0); Bilirubin,Total 8.2 MG/DL (0.20-1.00); Total Protein 5.5 G/DL (6.4-8.2)
[2022-01-29] MEDS: methylPREDNISolone SOD SUC 40 MG/1 ML VIAL IV SCH ×2 (09:16→21:20)
[2022-01-29] MEDS: POLYETHYLENE GLYCOL POWDER 17 GM PACK PO SCH (09:17)
[2022-01-29] MEDS: ASPIRIN EC 81 MG TABLET PO SCH (09:17)
[2022-01-29] MEDS: TICAGRELOR 90 MG TABLET PO SCH ×2 (09:17→21:19)
[2022-01-29] MEDS: LACTULOSE 20 GM/30 ML UDCUP PO SCH (09:17)
[2022-01-29] MEDS: FERROUS SULFATE 325 MG TABLET PO SCH ×2 (09:17→21:19)
[2022-01-29] MEDS: ZINC OXIDE PASTE 113 GM TUBE TOP SCH ×2 (09:18→21:19)
[2022-01-29] MEDS: cefTRIAXone 1,000 MG in SODIUM CHLORIDE 0.9% 100 ML IV SCH (09:18)
[2022-01-29] MEDS ORDERED: ALBUMIN 25% 12.5 GM/50 ML VIAL IV ONE (09:37)
[2022-01-29] MEDS: FLUCONAZOLE INJ 200 MG/100 ML PREMIX IV SCH (10:27)
[2022-01-29] MEDS: MIDODRINE 5 MG TABLET PO SCH ×3 (10:27→21:19)
[2022-01-29] MEDS: NOREPINEPHRINE 8 MG in SODIUM CHLORIDE 0.9% 242 ML IV PRN (10:35)
[2022-01-29] MEDS: PANTOPRAZOLE 40 MG VIAL IV SCH (16:09)
[2022-01-29] MEDS: INSULIN GLARGINE 100 UNIT/ML SUBCUT SCH (21:20)
[2022-01-30] MEDS: INSULIN REGULAR 100 UNIT/ML SUBCUT SCH ×4 (01:09→18:17)
[2022-01-30] MEDS: ALBUTEROL/IPRATROPIUM 3 ML NEB RESP TX SCH ×4 (01:20→19:55)
[2022-01-30 04:53] LABS: Basophils % 0.1 % (0.0-0.8); Hematocrit 21.9 VOL% (42.0-52.0); Immature Granulocytes % 1.5 %; Immature Granulocytes Absolute 0.27 #; Lymphocytes # 0.2 10*3/uL (1.4-4.0); Lymphocytes % 1.2 % (21.2-54.2); Mean Corpuscular Volume 85.9 FL (87-102); Mean Platelet Volume 11.6 FL (9.6-12.0); Monocytes % 4.5 % (1.7-12.7); Neutrophils % 92.7 % (38.7-73.9); Platelet Count 79 T/CUMM (130-400); Red Blood Count 2.55 MC/CUMM (3.8-5.5); Red Cell Distribution Width 21.2 % (9.3-17.3); White Blood Count 18.1 T/CUMM (4-12)
[2022-01-30 04:57] LABS: Calcium 8.2 MG/DL (8.5-10.1); Osmolality,Calculated 305.5 MOS/KG (273-304); Potassium 4.7 MMOL/L (3.5-5.1)
[2022-01-30 05:18] LABS: Lymphocytes 1 % (20-55); Platelet Estimate Decreased; Segmented Neutrophils 95 % (50-85); Total Cells Counted 100
[2022-01-30 05:25] LABS: Hypochromia 1+; Microcytosis 1+; Ovalocytes Slight
[2022-01-30 05:47] LABS: Albumin 1.4 G/DL (3.4-5.0); Bilirubin,Direct 6.41 MG/DL (0.0-0.20); Bilirubin,Indirect 1.4 MG/DL (0.0-1.0); Bilirubin,Total 7.8 MG/DL (0.20-1.00); Total Protein 5.3 G/DL (6.4-8.2)
[2022-01-30] MEDS ORDERED: SODIUM CHLORIDE 0.9% 1,000 ML IV PRN (08:00)
[2022-01-30] MEDS: POLYETHYLENE GLYCOL POWDER 17 GM PACK PO SCH (09:08)
[2022-01-30] MEDS: TICAGRELOR 90 MG TABLET PO SCH ×2 (09:08→20:32)
[2022-01-30] MEDS: LACTULOSE 20 GM/30 ML UDCUP PO SCH (09:08)
[2022-01-30] MEDS: methylPREDNISolone SOD SUC 40 MG/1 ML VIAL IV SCH ×2 (09:09→20:31)
[2022-01-30] MEDS: FERROUS SULFATE 325 MG TABLET PO SCH ×2 (09:09→20:32)
[2022-01-30] MEDS: ASPIRIN EC 81 MG TABLET PO SCH (09:09)
[2022-01-30] MEDS: MIDODRINE 5 MG TABLET PO SCH ×4 (09:09→20:32)
[2022-01-30] MEDS: ZINC OXIDE PASTE 113 GM TUBE TOP SCH ×2 (09:09→20:31)
[2022-01-30] MEDS: cefTRIAXone 1,000 MG in SODIUM CHLORIDE 0.9% 100 ML IV SCH (09:29)
[2022-01-30] MEDS: FLUCONAZOLE INJ 200 MG/100 ML PREMIX IV SCH (11:09)
[2022-01-30] MEDS: PANTOPRAZOLE 40 MG VIAL IV SCH (16:05)
[2022-01-30] MEDS: INSULIN GLARGINE 100 UNIT/ML SUBCUT SCH (20:32)
[2022-01-31] MEDS: INSULIN REGULAR 100 UNIT/ML SUBCUT SCH ×3 (00:02→12:07)
[2022-01-31] MEDS: ALBUTEROL/IPRATROPIUM 3 ML NEB RESP TX SCH ×4 (00:40→19:43)
[2022-01-31 03:34] LABS: Basophils % 0.1 % (0.0-0.8); Hematocrit 27.2 VOL% (42.0-52.0); Hemoglobin 9.1 GM/DL (14.0-18.0); Immature Granulocytes % 1.5 %; Immature Granulocytes Absolute 0.32 #; Lymphocytes # 0.4 10*3/uL (1.4-4.0); Lymphocytes % 1.6 % (21.2-54.2); Mean Corpuscular HGB Conc 33.5 GM/DL (32-36); Mean Corpuscular Volume 83.7 FL (87-102); Mean Platelet Volume 11.1 FL (9.6-12.0); Monocytes % 5.5 % (1.7-12.7); NRBC # 0.02 10*3/uL; Neutrophils % 91.3 % (38.7-73.9); Platelet Count 76 T/CUMM (130-400); Red Blood Count 3.25 MC/CUMM (3.8-5.5); Red Cell Distribution Width 19.9 % (9.3-17.3)
[2022-01-31 03:48] LABS: Calcium 7.9 MG/DL (8.5-10.1); Osmolality,Calculated 293.1 MOS/KG (273-304); Potassium 4.5 MMOL/L (3.5-5.1)
[2022-01-31 03:55] LABS: Lymphocytes 4 % (20-55); Segmented Neutrophils 89 % (50-85); Total Cells Counted 100
[2022-01-31 03:56] LABS: Acanthocytes 1+; Helmet Cells 1+; Platelet Estimate Decreased
[2022-01-31] MEDS: FERROUS SULFATE 325 MG TABLET PO SCH ×2 (08:09→22:29)
[2022-01-31] MEDS: LACTULOSE 20 GM/30 ML UDCUP PO SCH (08:09)
[2022-01-31] MEDS: POLYETHYLENE GLYCOL POWDER 17 GM PACK PO SCH (08:09)
[2022-01-31] MEDS: ZINC OXIDE PASTE 113 GM TUBE TOP SCH ×2 (08:09→22:29)
[2022-01-31] MEDS: ASPIRIN EC 81 MG TABLET PO SCH (08:09)
[2022-01-31] MEDS: MIDODRINE 5 MG TABLET PO SCH ×3 (08:09→22:29)
[2022-01-31] MEDS: TICAGRELOR 90 MG TABLET PO SCH ×2 (08:09→22:29)
[2022-01-31] MEDS: methylPREDNISolone SOD SUC 40 MG/1 ML VIAL IV SCH (08:10)
[2022-01-31 08:13] LABS: Allen Test Positive; Pt O2 Delivery Device Venturi Mask
[2022-01-31 08:14] LABS: ABG Base Excess 0.9 MMOL/L (-2.5-2.5); ABG Oxygen Saturation 97.7 % (95-100); ABG PCO2 43.4 MM HG (35-48); ABG PH 7.395 (7.35-7.45); ABG PO2 104.4 MM HG (80-95); ABG TCO2 27.3 MMOL/L (23-27)
[2022-01-31] MEDS: cefTRIAXone 1,000 MG in SODIUM CHLORIDE 0.9% 100 ML IV SCH (09:08)
[2022-01-31] MEDS: FLUCONAZOLE INJ 200 MG/100 ML PREMIX IV SCH (11:10)
[2022-01-31] MEDS: PANTOPRAZOLE 40 MG VIAL IV SCH (15:32)
[2022-01-31] MEDS ORDERED: LORazepam 2 MG/1 ML VIAL IV PRN (17:29)
[2022-01-31] MEDS ORDERED: MORPHINE 4 MG/1 ML VIAL IV PRN (17:42)
[2022-02-01] MEDS: ALBUTEROL/IPRATROPIUM 3 ML NEB RESP TX SCH ×2 (00:11→07:15)
[2022-02-01] MEDS ORDERED: OMEPRAZOLE ODT 20 MG TABLET NG SCH (09:00)
[2022-02-02 08:24] VITALS: BP 79/37
== END 2022-02-02 10:25 | disposition expired | DRG 870 ==
LOC: EDBD → EDUNIT# → N.ED 13:35 → SUATTDRO 16:12 → N.CC 16:12 → N.5E 01-31 17:56
PROVIDERS: ADMIT Internal Medicine; ATTEND Internal Medicine Geriatric Medicine